=== PATIENT | male | born 1960 | race Caucasian/White ===

== ENCOUNTER 2022-09-25 03:07 | Inpatient (IN) | payer MEDICARE, SELFPAY ==
--- NOTE | ~2022-09-25 | XR_ITS ---
EXAMINATION: XR chest 1V portable DATE: 09/25/2022 13:55 INDICATION: Cough. Chronic obstructive pulmonary disease. TECHNIQUE: A single frontal view of the chest was obtained on 2 radiographs. COMPARISON: Chest 2 views 10/06/2017 FINDINGS: The chest demonstrates clear lungs without pneumonia, pleural effusion, or pneumothorax. Th e heart size is normal. There are fixation wires at left clavicle. IMPRESSION: 1. No acute cardiopulmonary disease. Reviewed, dictated and finalized at location A.
--- NOTE | ~2022-09-25 | XR_ITS ---
Left foot Technique: AP, oblique, and lateral views were obtained. Clinical History: Diabetic wound, pain Findings: No acute fracture or dislocation is seen. Osseous alignment is anatomic. Joint spaces are p reserved without erosive or degenerative change. There is a 5 mm linear foreign body projecting at th e second interspace region, between the second and third proximal phalanges. There is an additional 7 mm linear foreign body in the plantar aspect of the foot at the level of the proximal second metatar aman shaft region. Impression: No radiographic evidence for osteomyelitis. 2 small linear foreign bodies in the foot, as detailed above. Reviewed, dictated and finalized at location M. Impression: No radiographic evidence for osteomyelitis. 2 small linear foreign bodies in the foot, as detailed above.
[2022-09-25 03:16] VITALS: BP 168/93; PULSE 102; RESP 20; TEMP 37.2; O2SAT 100
[2022-09-25 04:41] LABS: Basophils Absolute Auto 0.1 K/mm3 (0.0-0.1); Basophils Percent Auto 0.5 % (0.2-1.2); Eosinophils Absolute Auto 0.2 K/mm3 (0-0.3); Eosinophils Percent Auto 1.6 % (0-4.4); Hematocrit 47.7 % (42.0-52.0); Immature Granulocyte Absolute 0.03 K/mm3 (0.00-0.031); Immature Granulocyte Percent A 0.3 % (0-0.5); Lymphocytes Absolute Auto 2.52 K/mm3 (0.9-3.2); Lymphocytes Percent Auto 27.2 % (18.3-44.2); Mean Corpuscular HGB Conc 33.5 g/dl (32-36); Mean Corpuscular Hemoglobin 29.6 pg (26-34); Mean Corpuscular Volume 88.2 fl (80-100); Mean Platelet Volume 10.8 fl (7.4-10.4); Monocytes Absolute Auto 0.8 K/mm3 (0.1-0.6); Monocytes Percent Auto 8.5 % (2.6-8.5); Neutrophils Absolute Auto 5.7 K/mm3 (1.3-6.7); Neutrophils Percent Auto 61.9 % (45.5-73.1); Platelet Count Result 166 k/mm3 (150-375); Red Blood Count 5.41 M/mm3 (4.6-6.20); White Blood Count 9.3 K/mm3 (4.5-10.0)
[2022-09-25 04:59] LABS: Alanine Aminotransferase 16 U/L (6-50); Albumin Level 3.7 g/dL (3.5-5.1); Alkaline Phosphatase 106 U/L (38-126); Anion Gap 6 mmol/L (8-16); Aspartate Amino Transferase 17 U/L (17-59); Bilirubin,Total 0.6 mg/dL (0.2-1.3); Blood Urea Nitrogen 16 mg/dL (9-20); Calcium 8.4 mg/dL (8.4-10.2); Carbon Dioxide 29 mmol/L (22-30); Chloride 96 mmol/L (98-107); Estimated CRCL calculation 145 ml/min; Estimated Glomerular Filt Rate > 60; Glucose 506 mg/dL (65-110); Sodium 131 mmol/L (137-145)
[2022-09-25 05:14] LABS: CRP 5.4 mg/dL (<1.0)
[2022-09-25 05:19] LABS: NT Pro B Type Natriuretic Pept 119 pg/mL (19.9-100)
[2022-09-25 05:21] LABS: Procalcitonin 0.1 ng/mL
--- NOTE | 2022-09-25 05:49 | ED.GENADULT ---
HPI - General Adult General Chief complaint: Extremity Problem,Nontraumatic Stated complaint: FEET SWELLING/CHF Time Seen by Provider: 09/25/22 04:31 History of Present Illness HPI narrative: Patient 62-year-old gentleman who presents the emergency department with chief complaint of cellulitis to left foot patient reports that he stubbed his toe and has history of diabetes. The patient reports that he had redness and swelling and a blister that is formed in between his first and second toe on his left foot. Patient reports has had prior history of sepsis in the past and is concerned that he may develop sepsis with this. Related Data Allergies Allergy/AdvReac Type Severity Reaction Status Date / Time clindamycin Allergy Unknown anaphylaxis Verified 09/25/22 06:09 gabapentin Allergy Unknown fluid Verified 09/25/22 06:09 retention morphine Allergy Unknown Agitated Verified 09/25/22 06:09 tapentadol Allergy Unknown Anaphylaxis Verified 09/25/22 06:09 Review of Systems Review of Systems: A 10 system review of systems was completed on the patient and is negative except for what is stated in the HPI. Nursing and ancillary documentation was reviewed. [facility] Past Medical History Medical History (Updated 09/25/22 @ 07:06 by Sherman Baum MD) Anxiety Arthritis Asthma Bronchitis CAD (coronary artery disease) CHF (congestive heart failure) Chronic back pain COPD (chronic obstructive pulmonary disease) Depression Diabetes type 2, uncontrolled DM II (diabetes mellitus, type II), controlled Fracture of left clavicle GERD (gastroesophageal reflux disease) GI bleed Hidradenitis Suspected HLD (hyperlipidemia) HTN (hypertension) Leg fracture, left Migraines Myocardial infarction Obstructive sleep apnea on CPAP Peripheral neuropathy PUD (peptic ulcer disease) Right wrist fracture TIA (transient ischemic attack) Umbilical hernia Possible recurrent Surgical History Surgical History H/O cardiac catheterization approximately 60% blockage without any intervention. H/O umbilical hernia repair Patient stated that he had a reoccurrence after surgery History of open reduction and internal fixation (ORIF) procedure left clavicle History of surgery on right wrist History of total bilateral knee replacement Performed twice on each knee Family History Family History Father Suicide Depression Mother Murder Sibling Suicide Sibling Family history of glaucoma Hypertension Family history of cardiovascular disease Mother Family history of cardiovascular disease Social History Social History Social History: the patient recently lost his fiancee about a month ago due to drugs. He served in the . He is disabled. He has 2 children a son and a daughter. He does not have a durable power erisa attorney. Smoking packs per day: 1 Smoking cigarettes per day: 20.0 Years smoked: 40 Smoking pack-years: 40.00 Smoking status: Current every day smoker Tobacco type: cigarettes Alcohol intake: current Alcohol use details: One drink of whiskey per month. Substance use: never Living arrangements: alone Additional living arrangements comments: The patient currently lives in the basement of his mother's house. Occupation/Education: unemployed Additional occupation/education comments: Pt states that he is disabled. Gender identity (if verbalized by the patient): Male Spiritual care concerns: No Agree to blood products: No Exam Narrative: GENERAL: Well-appearing, well-nourished, and in no acute distress. HEAD: Normocephalic, atraumatic. EYES: PERRLA and EOMI. ENT: Nares clear, no rhinorrhea or epistaxis. Mucous membranes moist. NECK: Supple. CHEST: Clear to auscultation. No respiratory distress. HEA
[2022-09-25 05:52] LABS: Lactic Acid Reflex 1.3 mmol/L (0.7-2.0)
[2022-09-25] MEDS: CEFEPIME 2 GM/NS 50 ML 2 GM/50 ML BAG IVPB ×2 (06:04→17:11)
[2022-09-25] MEDS: INSULIN HUMAN REGULAR (*BKC) 100 UNITS/ML 10 UNITS IV PUSH (06:09)
[2022-09-25 06:21] VITALS: BP 156/95; PULSE 95; RESP 17; O2SAT 93
[2022-09-25 06:36] LABS: Partial Thromboplastin Time 30.8 SECONDS (22.3-36.8); Prothrombin Time 12.9 Seconds (11.1-14.7)
[2022-09-25] MEDS: metroNIDAZOLE 500 MG/ISO 100ML 500 MG/100 ML BAG 100 MG IVPB ×3 (06:57→21:17)
[2022-09-25 07:19] VITALS: BP 145/97; PULSE 92; RESP 16; O2SAT 100
--- NOTE | 2022-09-25 07:20 | PC.NURSE ---
Assumed care of pt, pt is resting on stretcher, pt on tele monitor. Per Yanira LEW at bedside report, pt is will be and ADMIT and awaiting bed assignment.
--- NOTE | 2022-09-25 07:24 | PC.NURSE ---
BS 266
[2022-09-25 07:30] LABS: Glucose Point of Care 266 mg/dl (65-105)
--- NOTE | 2022-09-25 07:36 | PC.NURSE ---
Dietary tray ordered for pt.
--- NOTE | 2022-09-25 08:05 | ADMGEN ---
This patient, Kvng Hoover Jr., was admitted to Medical Room 345-01. Patient/family oriented to hospital policies and general routines including ID bracelet, bed and alarms, visiting hours, pain management, procedures, bathroom and other care routines, personal items, smoking policy, room service/diet, and visiting hours. Information on how to activate the Rapid Response Team has been discussed. Patient/Family are encouraged to report perceived risks to care and to ask questions if they do not understand what they are told or what they should do.
[2022-09-25 08:22] VITALS: BMI 37.0
[2022-09-25 09:17] LABS: Glucose Point of Care 300 mg/dl (65-105)
[2022-09-25] MEDS: INSULIN GLARGINE (*BKC) 100 UNITS/ML 15 UNITS SUB-Q (09:17)
[2022-09-25] MEDS: INSULIN ASPART (*BKC) 100 UNITS/ML SUB-Q ×3 (09:18→17:19)
--- NOTE | 2022-09-25 10:00 | PM.IMHP ---
H&P: HPI History of Present Illness Date/Time: 09/25/22 1000 Chief Complaint: Wound of the left toe Narrative: Patient is 60-year-old male with past medical history CHF, COPD, diabetes, hyperlipidemia, hypertension who presented to the ED with worsening swelling, redness, drainage on the left great toe. Patient stated that it all started about 2 days ago. He is unaware of any trauma or injury and stated that he does not have any feeling in his feet, so he is not aware of trauma what happens. He did state that he has been having night sweats pretty bad over the last couple days. He also stated that he has been having some chest pain and shortness of breath however has been from a cough. He denies any current nausea, vomiting, diarrhea, constipation, lightheadedness, dizziness, urinary dysfunction. He did state that he does have some groin pain on the right when he goes sometimes however it is very intermittent. He also stated that he stop taking all of his medications about 7 years ago. He does continue to smoke at this time. Patient is being admitted to the hospitalist service under observation Review of Systems Review of Systems: All systems reviewed & are unremarkable except as noted in HPI and below PMFSH Past Medical History Medical History (Updated 09/25/22 @ 12:41 by Jerome Barfield DO) Anxiety Arthritis Asthma Bronchitis CAD (coronary artery disease) CHF (congestive heart failure) Chronic back pain COPD (chronic obstructive pulmonary disease) Depression Diabetes type 2, uncontrolled DM II (diabetes mellitus, type II), controlled Fracture of left clavicle GERD (gastroesophageal reflux disease) GI bleed Hidradenitis Suspected HLD (hyperlipidemia) HTN (hypertension) Leg fracture, left Migraines Myocardial infarction Obstructive sleep apnea on CPAP Peripheral neuropathy PUD (peptic ulcer disease) Right wrist fracture TIA (transient ischemic attack) Umbilical hernia Possible recurrent Surgical History Surgical History H/O cardiac catheterization approximately 60% blockage without any intervention. H/O umbilical hernia repair Patient stated that he had a reoccurrence after surgery History of open reduction and internal fixation (ORIF) procedure left clavicle History of surgery on right wrist History of total bilateral knee replacement Performed twice on each knee Family History Family History Father Suicide Depression Mother Murder Sibling Suicide Sibling Family history of glaucoma Hypertension Family history of cardiovascular disease Mother Family history of cardiovascular disease Social History Social History Social History: the patient recently lost his fiancee about a month ago due to drugs. He served in the . He is disabled. He has 2 children a son and a daughter. He wishes to be a full code and would like his roommate Lux to be his surrogate. Smoking packs per day: 1 Smoking cigarettes per day: 20.0 Years smoked: 49 Smoking pack-years: 49.00 Smoking status: Current every day smoker Tobacco type: cigarettes Alcohol intake: never Alcohol use details: One drink of whiskey per month. Substance use: former Lack of Transportation: YES Lack of Food: Often True Current Housing: I Have Housing Concerned About Future Housing: No Difficulty Paying Gas/Electric Bills: No Difficulty Paying for Meds: YES Currently Unemployed: No Education: High School Diploma/GED Difficulty w/ Childcare or Family Care: No Living arrangements: with friend(s) Additional living arrangements comments: Just recently moved in with a friend Occupation/Education: unemployed Additional occupation/education comments: Pt states that he is disabled. Gender identity (if verbalized by the p
[2022-09-25 12:23] LABS: Glucose Point of Care 325 mg/dl (65-105)
--- NOTE | 2022-09-25 12:29 | PM.CNGS ---
Assessment and Plan Assessment and plan (1) Cellulitis of great toe of left foot: Code(s): L03.032 - Cellulitis of left toe Status: Acute Assessment and Plan: I have reviewed the imaging and assessed the patient. There does not appear to be any signs of deep necrotic infection. Would recommend applying mupirocin ointment to open blister daily and continue IV antibiotics as per hospitalist. Will continue to monitor for any worsening signs of infection. (2) Tobacco use: Code(s): Z72.0 - Tobacco use Status: Acute Assessment and Plan: Recommended quitting smoking (3) Diabetic neuropathy: Code(s): E11.40 - Type 2 diabetes mellitus with diabetic neuropathy, unspecified Status: Acute (4) Diabetes mellitus with hyperglycemia: Code(s): E11.65 - Type 2 diabetes mellitus with hyperglycemia Status: Acute Assessment and Plan: Patient has uncontrolled and is not on any regular scheduled meds at home. To be addressed by hospitalist. (5) Foreign body in left foot: Code(s): S90.852A - Superficial foreign body, left foot, initial encounter Status: Acute Assessment and Plan: Foreign bodies appear to be thin threads of metal, likely related to using a hand grinder. These do not appear to be in the area of current cellulitis and infection. Would not recommend attempting removal unless they are showing signs of infection locally. History of Present Illness Consult details Consult date: 09/25/22 Reason for consult: other (Left great toe wound) Requesting physician: Sherman Buam MD Narrative: This is a 62-year-old man who I am asked to see for a left great toe wound. The patient presented to the emergency department earlier this morning with a toe wound that has worsened over the last 3 days. He started noticing some redness on his left great toe that then started extending on to his foot and ankle. He has had worsening swelling over the last couple days. He denies any fevers. He states that he has no sensation in his feet due to diabetic neuropathy, therefore he is not experiencing any pain in the region. He has a history of diabetes but has not been on any medications for nearly 10 years he also has a 40+ pack-year history of smoking. He does note that he had a piece of metal in his right foot that was related to some metal shards from using a hand grinder in his work room. He was not aware that he had any foreign objects in his left foot until the x-ray was taken this morning. The left foot x-ray in the emergency department showed no evidence of osteomyelitis. There were 2 small thin metal objects seen on the x-ray in the foot but these are distant from where his main concern is. He was found have evidence of cellulitis and was admitted for further treatment. He is currently on cefepime, metronidazole, and vancomycin. He states that the redness has already started improving. Review of Systems Review of Systems: All systems reviewed & are unremarkable except as noted in HPI and below Constitutional: Constitutional: Denies chills and Denies fever(s) Eyes: Eyes: Denies change in vision ENT: Denies hearing loss, Denies neck pain and Denies sore throat Cardiovascular: Cardiovascular: Denies chest pain and Denies dyspnea Respiratory: Respiratory: Denies cough, Denies dyspnea and Denies wheezing Gastrointestinal: Gastrointestinal: Denies abdominal pain, Denies change in bowel habits, Denies constipation and Denies vomiting Genitourinary: Genitourinary: Denies hematuria and Denies dysuria Musculoskeletal: Musculoskeletal: Reports as per HPI, Denies arthralgias, Denies joint swelling and Denies neck pain Neurologic: Reports as per HPI Allergic/Immunologic: Allergic/Immunologic: Denies wheezing [facility] Past Medical History Medical History (Updated 09/25/22 @ 12:41 by Jerome Barfield DO) Anxiety Arthritis Asthma Bronchitis CAD (coronary art
[2022-09-25 14:00] VITALS: BP 142/93; PULSE 92; RESP 16; TEMP 36.8; O2SAT 99
[2022-09-25 17:16] LABS: Glucose Point of Care 257 mg/dl (65-105)
--- NOTE | 2022-09-25 19:34 | PC.NURSE ---
PER PATIENT HE TAKES NO HOME MEDICATIONS.
[2022-09-25 20:46] VITALS: BP 138/83; PULSE 93; RESP 20; TEMP 36.6; O2SAT 97
[2022-09-25 21:13] LABS: Glucose Point of Care 229 mg/dl (65-105)
[2022-09-26] MEDS: ACETAMINOPHEN 325 MG TABLET 650 MG PO (01:05)
[2022-09-26 05:45] LABS: Basophils Absolute Auto 0.1 K/mm3 (0.0-0.1); Basophils Percent Auto 0.8 % (0.2-1.2); Eosinophils Absolute Auto 0.2 K/mm3 (0-0.3); Eosinophils Percent Auto 2.3 % (0-4.4); Hematocrit 47.5 % (42.0-52.0); Hemoglobin 16.4 g/dL (14.0-18.0); Immature Granulocyte Absolute 0.04 K/mm3 (0.00-0.031); Immature Granulocyte Percent A 0.4 % (0-0.5); Lymphocytes Absolute Auto 2.78 K/mm3 (0.9-3.2); Lymphocytes Percent Auto 29.3 % (18.3-44.2); Mean Corpuscular HGB Conc 34.5 g/dl (32-36); Mean Corpuscular Hemoglobin 29.6 pg (26-34); Mean Corpuscular Volume 85.7 fl (80-100); Monocytes Absolute Auto 0.7 K/mm3 (0.1-0.6); Monocytes Percent Auto 6.8 % (2.6-8.5); Neutrophils Absolute Auto 5.7 K/mm3 (1.3-6.7); Neutrophils Percent Auto 60.4 % (45.5-73.1); Platelet Count Result 165 k/mm3 (150-375); Red Blood Count 5.54 M/mm3 (4.6-6.20); Red Cell Distribution Width 12.7 % (11.5-14.5); White Blood Count 9.5 K/mm3 (4.5-10.0)
[2022-09-26 05:47] VITALS: BP 131/87; PULSE 89; RESP 20; TEMP 36.4; O2SAT 95
[2022-09-26 06:01] LABS: Alanine Aminotransferase 16 U/L (6-50); Albumin Level 3.3 g/dL (3.5-5.1); Alkaline Phosphatase 94 U/L (38-126); Anion Gap 2 mmol/L (8-16); Aspartate Amino Transferase 19 U/L (17-59); Bilirubin,Total 0.6 mg/dL (0.2-1.3); Blood Urea Nitrogen 11 mg/dL (9-20); Carbon Dioxide 31 mmol/L (22-30); Chloride 99 mmol/L (98-107); Cholesterol 217 mg/dL (0-200); Estimated CRCL calculation 147 ml/min; Estimated Glomerular Filt Rate > 60; Glucose 217 mg/dL (65-110); HDL Direct 49 mg/dL; Magnesium 2.1 mg/dL (1.6-2.3); Potassium 3.5 mmol/L (3.4-5.0); Sodium 132 mmol/L (137-145); Triglycerides 174 mg/dL (<150)
[2022-09-26 06:14] LABS: LDL Cholesterol Direct 132 mg/dL
[2022-09-26] MEDS: CEFEPIME 2 GM/NS 50 ML 2 GM/50 ML BAG IVPB ×2 (06:48→17:22)
[2022-09-26] MEDS: metroNIDAZOLE 500 MG/ISO 100ML 500 MG/100 ML BAG 100 MG IVPB ×3 (06:48→21:40)
[2022-09-26 08:00] VITALS: PULSE 89; RESP 20; O2SAT 95
[2022-09-26 08:13] LABS: Glucose Point of Care 254 mg/dl (65-105)
[2022-09-26] MEDS: INSULIN ASPART (*BKC) 100 UNITS/ML SUB-Q ×3 (08:25→17:19)
[2022-09-26] MEDS: ASPIRIN 81 MG CHEWABLE TABLET PO (08:29)
[2022-09-26] MEDS: MUPIROCIN 2% OINT 22 GM TUBE 1 APPLIC TOPICAL (08:43)
--- NOTE | 2022-09-26 09:00 | PM.IMPN ---
Progress Note: A&P Assessment and Plan (1) Cellulitis of great toe of left foot: Code(s): L03.032 - Cellulitis of left toe Status: Acute Assessment and Plan: reported increased redness, swelling to the left great toe foot x-ray found 2 small linear foreign bodies in the foot most likely related to uncontrolled diabetes continue cefepime, vancomycin, Flagyl day 2 CRP has 5.4, procal is 0.1 wound care consult, added mupirocin General surgery consult thank you for your help Wound culture pending blood culture NGTD no evidence of osteomyelitis Trend symptoms including redness swelling infection (2) Diabetes type 2, uncontrolled: Qualifiers: Glycemic state: with hyperglycemia Qualified Code(s): E11.65 - Type 2 diabetes mellitus with hyperglycemia Code(s): E11.65 - Type 2 diabetes mellitus with hyperglycemia Status: Acute Assessment and Plan: glucose is 506 upon admission, currently 217 patient reports no home meds A1c 5.8 Accu-Cheks AC and HS insulin sliding scale with a increased protocol hypoglycemia protocol trend glucose adjust therapy as indicated (3) HTN (hypertension): Qualifiers: Hypertension type: essential hypertension Qualified Code(s): I10 - Essential (primary) hypertension Code(s): I10 - Essential (primary) hypertension Status: Chronic Assessment and Plan: BP is 131/87 No home medications Trend BP Adjust medications as indicated (4) COPD (chronic obstructive pulmonary disease): Qualifiers: COPD type: unspecified COPD Qualified Code(s): J44.9 - Chronic obstructive pulmonary disease, unspecified Code(s): J44.9 - Chronic obstructive pulmonary disease, unspecified Status: Chronic Assessment and Plan: patient reports increased shortness of breath, cough, wheezes patient currently does smoke no reported home meds chest x-ray ordered consider neb treatments stable at this time not convinced of exacerbation (5) Foreign body in left foot: Code(s): S90.852A - Superficial foreign body, left foot, initial encounter Status: Acute Assessment and Plan: Seen on Xray General surgery consulted Intervention not indicated (6) Diabetic neuropathy: Code(s): E11.40 - Type 2 diabetes mellitus with diabetic neuropathy, unspecified Status: Acute Assessment and Plan: Related to uncontrolled glucose Stated he was on gabapentin at one time, however did note to have an allergy to gabapentin Hold off on restarting as he seems to not want anything for this Time Spent With Patient Time: 52 minutes Time with patient: Greater than 35 minutes Subjective Date/time seen: 09/26/22899 Interval history: 09/26/22899 Patient was lying in bed. Patient stated is having a lot of pain in his leg and stated that his legs are throbbing. He denies any chest pain, shortness a breath, nausea vomiting. He does have a pretty decent cough with sweats. He is walking around states that he is okay walking. We also talked about some maintenance medications as he is okay with restarting a statin for his cholesterol, aspirin, something for neuropathy. He does have history of fun drug use so will start with duloxetine as he is allergic to gabapentin. 09/25/22? 1000 Patient is 60-year-old male with past medical history CHF, COPD, diabetes, hyperlipidemia, hypertension who presented to the ED with worsening swelling, redness, drainage on the left great toe.? Patient stated that it all started about 2 days ago.? He is unaware of any trauma or injury and stated that he does not have any feeling in his feet, so he is not aware of trauma what happens.? He did state that he has been having night sweats pretty bad over the last couple days.? He also stat
--- NOTE | 2022-09-26 09:00 | P.PNIM_ITS ---
Progress Note: A&P Assessment and Plan (1) Cellulitis of great toe of left foot: Code(s): L03.032 - Cellulitis of left toe Status: Acute Assessment and Plan: * reported increased redness, swelling to the left great toe * foot x-ray found 2 small linear foreign bodies in the foot * most likely related to uncontrolled diabetes * continue cefepime, vancomycin, Flagyl day 2 * CRP has 5.4, procal is 0.1 * wound care consult, added mupirocin * General surgery consult thank you for your help * Wound culture pending * blood culture NGTD * no evidence of osteomyelitis * Trend symptoms including redness swelling infection (2) Diabetes type 2, uncontrolled: Qualifiers: Glycemic state: with hyperglycemia Qualified Code(s): E11.65 - Type 2 diabetes mellitus with hyperglycemia Code(s): E11.65 - Type 2 diabetes mellitus with hyperglycemia Status: Acute Assessment and Plan: * glucose is 506 upon admission, currently 217 * patient reports no home meds * A1c 5.8 * Accu-Cheks AC and HS * insulin sliding scale with a increased protocol * hypoglycemia protocol * trend glucose * adjust therapy as indicated (3) HTN (hypertension): Qualifiers: Hypertension type: essential hypertension Qualified Code(s): I10 - Essential (primary) hypertension Code(s): I10 - Essential (primary) hypertension Status: Chronic Assessment and Plan: * BP is 131/87 * No home medications * Trend BP * Adjust medications as indicated (4) COPD (chronic obstructive pulmonary disease): Qualifiers: COPD type: unspecified COPD Qualified Code(s): J44.9 - Chronic o bstructive pulmonary disease, unspecified Code(s): J44.9 - Chronic obstructive pulmonary disease, unspecified Status: Chronic Assessment and Plan: * patient reports increased shortness of breath, cough, wheezes * patient currently does smoke * no reported home meds * chest x-ray ordered * consider neb treatments * stable at this time not convinced of exacerbation (5) Foreign body in left foot: Code(s): S90.852A - Superficial foreign body, left foot, initial encounter Status: Acute Assessment and Plan: * Seen on Xray * General surgery consulted * Intervention not indicated (6) Diabetic neuropathy: Code(s): E11.40 - Type 2 diabetes mellitus with diabetic neuropathy, unspecified Status: Acute Assessment and Plan: * Related to uncontrolled glucose * Stated he was on gabapentin at one time, however did note to have an allergy to gabapentin * Hold off on restarting as he seems to not want anything for this Time Spent With Patient Time: 52 minutes Time with patient: Greater than 35 minutes Subjective Date/time seen: 09/26/22899 Interval history: 09/26/22899 Patient was lying in bed. Patient stated is having a lot of pain in his leg and stated that his legs are throbbing. He denies any chest pain, shortness a breath, nausea vomiting. He does have a pretty decent cough with sweats. He is walking around states that he is okay walking. We also talked about some maintenance medications as he is okay with restarting a statin for his cholesterol, aspirin, something for neuropathy. He does have hist
--- NOTE | 2022-09-26 10:29 | PM.PNGS ---
Progress Note: A&P Assessment and Plan (1) Cellulitis of great toe of left foot: Code(s): L03.032 - Cellulitis of left toe Status: Acute Assessment and Plan: Continue local wound care. No surgical debridement necessary at this time. OK to discharge once medically stable. Will sign off. (2) Foreign body in left foot: Code(s): S90.852A - Superficial foreign body, left foot, initial encounter Status: Acute (3) Diabetes mellitus with hyperglycemia: Code(s): E11.65 - Type 2 diabetes mellitus with hyperglycemia Status: Acute (4) Diabetic neuropathy: Code(s): E11.40 - Type 2 diabetes mellitus with diabetic neuropathy, unspecified Status: Acute (5) Tobacco use: Code(s): Z72.0 - Tobacco use Status: Acute Subjective Subjective Date/Time Seen: 09/26/22 10:29 Interval history: Doing well. No pain. Exam Extrem: Other: Left great toe wound with redness but no ischemic changes or gangrene. Objective Data Vital Signs Vital Signs: Vital Signs - 24 hr 09/25/22 14:00 09/25/22 20:46 09/26/22 05:47 Temperature 36.8 C 36.6 C 36.4 C L Pulse Rate 92 93 89 Respiratory Rate 16 20 20 Blood Pressure 142/93 H 138/83 131/87 Pulse Oximetry 99 97 95 Intake/Output Intake/Output: Intake & Output 09/23/22 09/24/22 09/25/22 09/26/22 23:59 23:59 23:59 23:59 Intake Total 2240 1570 Balance 2240 1570 Meds/Results Medications: Active Medications Generic Name Dose Route Start Last Admin Trade Name Freq PRN Reason Stop Dose Admin Acetaminophen 650 mg 09/25/22 07:01 09/26/22 01:05 Acetaminophen 325 Mg Tablet PO 650 mg Q4H PRN Administration Mild Pain (1-3) or Fever Aspirin 81 mg 09/26/22 08:00 09/26/22 08:29 Aspirin 81 Mg Chewable Tablet PO 81 mg DAILY@0800 CONNER Administration Dextrose 12.5 gm 09/25/22 07:01 Dextrose 50% 25 Gm/50 Ml Syringe IV PUSH PRN PRN Hypoglycemia Protocol Glucagon 1 mg 09/25/22 07:01 Glucagon For Inj 1 Mg Vial IM PRN PRN Hypoglycemia Protocol Glucose 15 gm 09/25/22 07:01 Glucose Oral Gel 15 Gm Of Glucse In 37.5 Gm Tube PO PRN PRN Hypoglycemia Protocol Cefepime HCl 2 gm in 50 mls @ 100 mls/hr 09/25/22 18:00 09/26/22 06:48 Maxipime 2 Gm/Ns 50 Ml IVPB 100 mls/hr Q12H CONNER Administration Metronidazole 500 mg in 100 mls @ 100 mls/hr 09/25/22 14:00 09/26/22 06:48 Flagyl 500 Mg/Iso Soln 100 Ml IVPB 100 mls/hr Q8H CONNER Administration Dextrose 1,000 mls @ 100 mls/hr 09/25/22 07:01 Dextrose 5% 1,000 Ml IVPB PRN PRN Hypoglycemia Protocol Vancomycin HCl 1,500 mg in 500 mls @ 250 mls/hr 09/25/22 21:00 09/26/22 08:29 Vancomycin 1,500 Mg/D5w 500 Ml IVPB 250 mls/hr Q12H CONNER Administration Insulin Aspart 4 - 12 units 09/25/22 12:00 09/26/22 08:25 Insulin Aspart (*Bkc) 100 Units/Ml SUB-Q 8 units TIDWM CONNER Administration Protocol Mupirocin 1 applic 09/26/22 09:00 09/26/22 08:43 Mupirocin 2% Oint 22 Gm Tube TOPICAL 1 applic DAILY CONNER Administration Radiology Results: ITS Impressions Foot X-Ray 09/25/22 06:22 Impression: No radiographic evidence for osteomyelitis. 2 small linear foreign bodies in the foot, as detailed above. Chest X-Ray 09/25/22 13:57 IMPRESSION: 1. No acute cardiopulmonary disease. Labs Labs: Laboratory Results - last 24 hr 09/25/22 09/25/22 09/25/22 12:17 17:15 21:09 WBC RBC Hgb Hct MCV MCH MCHC RDW Plt Count MPV Immature Gran % (Auto) Neut % (Auto) Lymph % (Auto) Burke % (Auto) Eos % (Auto) Baso % (Auto) Lymph # (Auto) Burke # (Auto) Eos # (Auto) Baso # (Auto) Abs Immat Gran (auto) Absolute Neuts (auto) Absolute Nucleated RBC Nucleated RBC % Sodium Potassium Chloride Carbon Dioxide Anion Gap BUN Creat
[2022-09-26 12:24] LABS: Glucose Point of Care 325 mg/dl (65-105)
[2022-09-26] MEDS: HYDROcodone/acetaminophen (*CRX) 5-325 MG TABLET 1 TAB PO (13:20)
[2022-09-26] MEDS: DULoxetine HCL 60 MG CAPSULE.DR PO (13:20)
[2022-09-26] MEDS: metFORMIN HCL 500 MG TABLET PO (13:29)
[2022-09-26 14:00] VITALS: BP 128/80; PULSE 94; RESP 18; TEMP 36.4; O2SAT 97
[2022-09-26 17:18] LABS: Glucose Point of Care 290 mg/dl (65-105)
[2022-09-26 20:11] VITALS: BP 156/92; PULSE 102; RESP 16; TEMP 37.3; O2SAT 97
[2022-09-26 20:31] LABS: Vancomycin Trough 8.4 ug/mL (10.0-20.0)
[2022-09-26 21:01] LABS: Glucose Point of Care 260 mg/dl (65-105)
[2022-09-27 04:44] VITALS: BP 124/74; PULSE 94; RESP 18; TEMP 36.3; O2SAT 98
[2022-09-27 05:42] LABS: Basophils Absolute Auto 0.1 K/mm3 (0.0-0.1); Basophils Percent Auto 0.9 % (0.2-1.2); Eosinophils Absolute Auto 0.2 K/mm3 (0-0.3); Eosinophils Percent Auto 1.8 % (0-4.4); Hematocrit 47.5 % (42.0-52.0); Hemoglobin 16.4 g/dL (14.0-18.0); Immature Granulocyte Absolute 0.04 K/mm3 (0.00-0.031); Immature Granulocyte Percent A 0.4 % (0-0.5); Lymphocytes Percent Auto 27.7 % (18.3-44.2); Mean Corpuscular HGB Conc 34.5 g/dl (32-36); Mean Corpuscular Hemoglobin 29.5 pg (26-34); Mean Corpuscular Volume 85.4 fl (80-100); Mean Platelet Volume 9.7 fl (7.4-10.4); Monocytes Absolute Auto 0.6 K/mm3 (0.1-0.6); Monocytes Percent Auto 7.1 % (2.6-8.5); Neutrophils Absolute Auto 5.6 K/mm3 (1.3-6.7); Neutrophils Percent Auto 62.1 % (45.5-73.1); Platelet Count Result 168 k/mm3 (150-375); Red Blood Count 5.56 M/mm3 (4.6-6.20); Red Cell Distribution Width 12.6 % (11.5-14.5)
[2022-09-27] MEDS: CEFEPIME 2 GM/NS 50 ML 2 GM/50 ML BAG IVPB (05:45)
[2022-09-27] MEDS: metroNIDAZOLE 500 MG/ISO 100ML 500 MG/100 ML BAG 100 MG IVPB (05:55)
[2022-09-27 05:57] LABS: Alanine Aminotransferase 17 U/L (6-50); Albumin Level 3.4 g/dL (3.5-5.1); Alkaline Phosphatase 89 U/L (38-126); Anion Gap 5 mmol/L (8-16); Aspartate Amino Transferase 21 U/L (17-59); Bilirubin,Total 0.7 mg/dL (0.2-1.3); Blood Urea Nitrogen 13 mg/dL (9-20); CRP 1.5 mg/dL (<1.0); Carbon Dioxide 29 mmol/L (22-30); Chloride 99 mmol/L (98-107); Estimated CRCL calculation 174 ml/min; Estimated Glomerular Filt Rate > 60; Glucose 243 mg/dL (65-110); Potassium 3.6 mmol/L (3.4-5.0); Sodium 133 mmol/L (137-145)
--- NOTE | 2022-09-27 08:19 | P.DS_ITS ---
DS: Admitting Diagnosis Discharge Date 09/27/22814 Admitting Diagnosis Cellulitis of the left great toe DS: Discharge Diagnosis Discharge Diagnosis (1) Cellulitis of great toe of left foot: Code(s): L03.032 - Cellulitis of left toe Status: Acute Assessment and Plan: * reported increased redness, swelling to the left great toe * foot x-ray found 2 small linear foreign bodies in the foot * most likely related to uncontrolled diabetes * Stop cefepime, vancomycin, Flagyl, start Amoxicillin for a total of a 14 day course * CRP has 5.4, procal is 0.1 * Current CRP is 1.5 * wound care consult, added mupirocin * General surgery consult thank you for your help * Wound culture grew group B streptococcus * blood culture NGTD * no evidence of osteomyelitis * Trend symptoms including redness swelling infection (2) Diabetes type 2, uncontrolled: Qualifiers: Glycemic state: with hyperglycemia Qualified Code(s): E11.65 - Type 2 diabetes mellitus with hyperglycemia Code(s): E11.65 - Type 2 diabetes mellitus with hyperglycemia Status: Acute Assessment and Plan: * glucose is 506 upon admission, currently 243 * patient reports no home meds * A1c 13.4 * Accu-Cheks AC and HS * insulin sliding scale with a increased protocol * hypoglycemia protocol * trend glucose * adjust therapy as indicated * Started metformin, increase to twice a day * Added Jardiance for further control (3) HTN (hypertension): Qualifiers: Hypertension type: essential hypertension Qualified Code(s): I10 - Essential (primary) hypertension Code(s): I10 - Essential (primary) hypertension Status: Chronic Assessment and Plan: * BP is 124/74 * No home medications * Trend BP * Adjust medications as indicated * Jardiance added for further glucose control (4) COPD (chronic obstructive pulmonary disease): Qualifiers: COPD type: unspecified COPD Qualified Code(s): J44.9 - Chronic obstructive pulmonary disease, unspecified Code(s): J44.9 - Chronic obstructive pulmonary disease, unspecified Status: Chronic Assessment and Plan: * patient reports increased shortness of breath, cough, wheezes * patient currently does smoke * no reported home meds * chest x-ray no acute cardiopulmonary disease * consider neb treatments * stable at this time not convinced of exacerbation (5) Foreign body in left foot: Code(s): S90.852A - Superficial foreign body, left foot, initial encounter Status: Acute Assessment and Plan: * Seen on Xray * General surgery consulted * Intervention not indicated (6) Diabetic neuropathy: Code(s): E11.40 - Type 2 diabetes mellitus with diabetic neuropathy, unspecified Status: Acute Assessment and Plan: * Related to uncontrolled glucose * Stated he was on gabapentin at one time, however did note to have an allergy to gabapentin * Started Cymbalta for control to avoid Lyrica and narcotics DS: Summary Hospital Course Hospital Course: patient 6-year-old male with past medical history of CHF, COPD, diabetes, hyperlipidemia, hypertension who presented the ED with worsening swelling, redness, drainage of left great toe. Patient stated that it all
--- NOTE | 2022-09-27 08:19 | PM.DS ---
DS: Admitting Diagnosis Discharge Date 09/27/2215 Admitting Diagnosis Cellulitis of the left great toe DS: Discharge Diagnosis Discharge Diagnosis (1) Cellulitis of great toe of left foot: Code(s): L03.032 - Cellulitis of left toe Status: Acute Assessment and Plan: reported increased redness, swelling to the left great toe foot x-ray found 2 small linear foreign bodies in the foot most likely related to uncontrolled diabetes Stop cefepime, vancomycin, Flagyl, start Amoxicillin for a total of a 14 day course CRP has 5.4, procal is 0.1 Current CRP is 1.5 wound care consult, added mupirocin General surgery consult thank you for your help Wound culture grew group B streptococcus blood culture NGTD no evidence of osteomyelitis Trend symptoms including redness swelling infection (2) Diabetes type 2, uncontrolled: Qualifiers: Glycemic state: with hyperglycemia Qualified Code(s): E11.65 - Type 2 diabetes mellitus with hyperglycemia Code(s): E11.65 - Type 2 diabetes mellitus with hyperglycemia Status: Acute Assessment and Plan: glucose is 506 upon admission, currently 243 patient reports no home meds A1c 13.4 Accu-Cheks AC and HS insulin sliding scale with a increased protocol hypoglycemia protocol trend glucose adjust therapy as indicated Started metformin, increase to twice a day Added Jardiance for further control (3) HTN (hypertension): Qualifiers: Hypertension type: essential hypertension Qualified Code(s): I10 - Essential (primary) hypertension Code(s): I10 - Essential (primary) hypertension Status: Chronic Assessment and Plan: BP is 124/74 No home medications Trend BP Adjust medications as indicated Jardiance added for further glucose control (4) COPD (chronic obstructive pulmonary disease): Qualifiers: COPD type: unspecified COPD Qualified Code(s): J44.9 - Chronic obstructive pulmonary disease, unspecified Code(s): J44.9 - Chronic obstructive pulmonary disease, unspecified Status: Chronic Assessment and Plan: patient reports increased shortness of breath, cough, wheezes patient currently does smoke no reported home meds chest x-ray no acute cardiopulmonary disease consider neb treatments stable at this time not convinced of exacerbation (5) Foreign body in left foot: Code(s): S90.852A - Superficial foreign body, left foot, initial encounter Status: Acute Assessment and Plan: Seen on Xray General surgery consulted Intervention not indicated (6) Diabetic neuropathy: Code(s): E11.40 - Type 2 diabetes mellitus with diabetic neuropathy, unspecified Status: Acute Assessment and Plan: Related to uncontrolled glucose Stated he was on gabapentin at one time, however did note to have an allergy to gabapentin Started Cymbalta for control to avoid Lyrica and narcotics DS: Summary Hospital Course Hospital Course: patient 6-year-old male with past medical history of CHF, COPD, diabetes, hyperlipidemia, hypertension who presented the ED with worsening swelling, redness, drainage of left great toe. Patient stated that it all started about 2 days prior to admission and was getting worse. X-ray of the foot did not show any evidence for osteomyelitis but did show some foreign bodies in the foot most likely metal shavings from a loader magazine grinder use. General surgery was consulted and no debridement was indicated. Wound Care did evaluate the patient and wound has been cleaned up. Mupirocin appointment has been prescribed and has been applied to the wound. Redness, swelling, pain has is decreased and appears better. Wound culture did grow group B Streptococcus. Patient initially was started on IV cefepime, vancomycin, Flagy
[2022-09-27 08:39] LABS: Glucose Point of Care 248 mg/dl (65-105)
[2022-09-27 08:40] VITALS: PULSE 94; RESP 18; O2SAT 98
[2022-09-27] MEDS: MUPIROCIN 2% OINT 22 GM TUBE 1 APPLIC TOPICAL (08:40)
[2022-09-27] MEDS: DULoxetine HCL 60 MG CAPSULE.DR PO (08:40)
[2022-09-27] MEDS: ASPIRIN 81 MG CHEWABLE TABLET PO (08:40)
[2022-09-27] MEDS: ATORVASTATIN 20 MG TABLET PO (08:40)
[2022-09-27] MEDS: metFORMIN HCL 500 MG TABLET PO (08:40)
[2022-09-27] MEDS: EMPAGLIFLOZIN 25 MG TABLET PO (08:48)
[2022-09-27] MEDS: AMOXICILLIN/CLAVULANATE K 875-125 MG TAB 1 TABLET PO (08:48)
[2022-09-27 09:38] LABS: Hemoglobin A1C 13.4 % (<5.7)
[2022-09-27 10:53] LABS: Glucose Point of Care 337 mg/dl (65-105)
[2022-09-27 12:03] LABS: Glucose Point of Care 264 mg/dl (65-105)
[2022-09-27] MEDS: INSULIN ASPART (*BKC) 100 UNITS/ML SUB-Q (12:30)
== END 2022-09-27 13:43 | disposition home or self-care (01) | DRG 639 ==
LOC: ANHED 07:06 → ANH3MED 07:41
PROVIDERS: Admitting Provider Internal Medicine; Emergency Provider Emergency Medicine; Visit Provider Nurse Practitioner
DX: E11.628 Type 2 diabetes mellitus with other skin complications (principal); L03.032 Cellulitis of left toe; E11.65 Type 2 diabetes mellitus with hyperglycemia; J44.9 Chronic obstructive pulmonary disease, unspecified; S90.852A Superficial foreign body, left foot, initial encounter; E11.40 Type 2 diabetes mellitus with diabetic neuropathy, unspecified; E78.5 Hyperlipidemia, unspecified; I11.0 Hypertensive heart disease with heart failure; I50.9 Heart failure, unspecified; F41.9 Anxiety disorder, unspecified; F32.A Depression, unspecified; G47.33 Obstructive sleep apnea (adult) (pediatric); F17.210 Nicotine dependence, cigarettes, uncomplicated; Z96.653 Presence of artificial knee joint, bilateral; Z88.1 Allergy status to other antibiotic agents; Z88.5 Allergy status to narcotic agent
CPT/HCPCS: 36415; 71045; 73630; 80053; 80061; 80202; 82948; 83036; 83605; 83735; 83880; 84145; 85025; 85610; 85730; 86140; 87040; 87070; 87147; 87205; 96365; 96366; 96367; 99285; A9270; G0378; J0692; J1815; J3370

== ENCOUNTER 2023-01-09 16:58 | Emergency (ER) | payer MEDICARE, SELFPAY ==
--- NOTE | ~2023-01-09 | XR_ITS ---
EXAMINATION: XR chest 2V Exam Date/Time: 01/09/2023 17:20 CDT HISTORY: sob, COUGH (PRODUCTIVE) Comparison: 09/25/2022. RESULT: Lines, tubes, and devices: Left clavicular cerclage wires. Lungs and pleura: Streaky left basilar opacities. Minimal left costophrenic angle blunting. Cardiomediastinal silhouette: Stable. Other: No acute osseous or upper abdominal finding. IMPRESSION: Left basilar atelectasis/scar. Small left pleural effusion versus pleural parenchymal scarring. Reviewed, dictated and finalized at location K. IMPRESSION: Left basilar atelectasis/scar. Small left pleural effusion versus pleural paren chymal scarring.
--- NOTE | ~2023-01-09 | XR_ITS ---
EXAM: XR foot RT min 3V DATE: 01/09/2023 17:38 HISTORY: STEPPED ON SEWING NEEDLE 3 DAYS AGO . COMPARISON: None available. FINDINGS: Decreased mineralization. No fracture or dislocation. No lytic or blastic lesion. Moderate tibiotalar and mild midfoot degenerative changes. No erosion or periosteal change. Radiopaque foreig n body #1: vertically oriented sewing needle in the plantar soft tissues at the level of and probably abutting the undersurface of the proximal third and fourth metatarsals. There are multiple additiona l linear, radiopaque foreign bodies likely representing needle fragments: #2 lateral to the fifth pro ximal phalange, #3 plantar soft tissues at the level of the cuneiforms, #4 plantar soft tissues at th e level of the anterior calcaneus. Mid and forefoot soft tissue swelling. IMPRESSION: Multiple soft tissue foreign bodies, described above. Reviewed, dictated and finalized at location K.
[2023-01-09 17:08] VITALS: BP 149/90; PULSE 107; RESP 22; TEMP 37.4; O2SAT 97
--- NOTE | 2023-01-09 17:16 | ECG_ITS ---
Measurements Intervals [place] Rate: 103 P: 15 VA: 185 QRS: -30 QRSD: 82 T: 61 QT: 334 QTc: 439 Interpretive Statements SINUS TACHYCARDIA VENTRICULAR PREMATURE COMPLEX CONSIDER ANTERIOR INFARCT, AGE INDETERMINATE INFERIOR INFARCT, AGE INDETERMINATE BORDERLINE T WAVE ABNORMALITY- HIGH LATERAL LEADS BASELINE ARTIFACT- I, II, III, AVR, AVL, AVF ABNORMAL ECG NO PREVIOUS ECG AVAILABLE FOR COMPARISON Electronically Signed On 01-09-2023 17:37:56 CDT by Kiran Johnson D.O.
[2023-01-09 18:14] LABS: Basophils Absolute Auto 0.1 K/mm3 (0.0-0.1); Basophils Percent Auto 0.6 % (0.2-1.2); Eosinophils Absolute Auto 0.1 K/mm3 (0-0.3); Eosinophils Percent Auto 1.1 % (0-4.4); Hematocrit 48.2 % (42.0-52.0); Hemoglobin 16.2 g/dL (14.0-18.0); Immature Granulocyte Absolute 0.05 K/mm3 (0.00-0.031); Immature Granulocyte Percent A 0.4 % (0-0.5); Lymphocytes Absolute Auto 1.71 K/mm3 (0.9-3.2); Lymphocytes Percent Auto 13.3 % (18.3-44.2); Mean Corpuscular HGB Conc 33.6 g/dl (32-36); Mean Corpuscular Hemoglobin 29.4 pg (26-34); Mean Corpuscular Volume 87.5 fl (80-100); Mean Platelet Volume 9.9 fl (7.4-10.4); Monocytes Percent Auto 7.9 % (2.6-8.5); Neutrophils Absolute Auto 9.8 K/mm3 (1.3-6.7); Neutrophils Percent Auto 76.7 % (45.5-73.1); Platelet Count Result 190 k/mm3 (150-375); Red Blood Count 5.51 M/mm3 (4.6-6.20); White Blood Count 12.8 K/mm3 (4.5-10.0)
[2023-01-09 18:24] LABS: Alanine Aminotransferase 17 U/L (6-50); Albumin Level 3.8 g/dL (3.5-5.1); Alkaline Phosphatase 98 U/L (38-126); Anion Gap 5 mmol/L (8-16); Aspartate Amino Transferase 18 U/L (17-59); Bilirubin,Total 0.7 mg/dL (0.2-1.3); Blood Urea Nitrogen 16 mg/dL (9-20); Calcium 9.1 mg/dL (8.4-10.2); Carbon Dioxide 28 mmol/L (22-30); Chloride 96 mmol/L (98-107); Estimated CRCL calculation 123 ml/min; Estimated Glomerular Filt Rate > 60; Glucose 444 mg/dL (65-110); Sodium 129 mmol/L (137-145)
[2023-01-09 20:11] LABS: Troponin I 0.014 ng/mL (0.000-0.034)
--- NOTE | 2023-01-09 21:37 | PC.NURSE ---
called pt to take back to room. no answer.
== END 2023-01-09 21:37 | disposition left against medical advice (07) ==
PROVIDERS: Emergency Provider Emergency Medicine
DX: R06.02 Shortness of breath (principal); M79.671 Pain in right foot
CPT/HCPCS: 36415; 71046; 73630; 80053; 84484; 85025; 93005; 99199

== ENCOUNTER 2023-09-24 00:46 | Inpatient (IN) | payer MEDICARE, SELFPAY ==
[2023-09-24] VITALS (17 sets, daily range): BP systolic 118–142; BP diastolic 84–99; PULSE 86–103; RESP 18–28; TEMP 35.6–36.8; O2SAT 88–99; BMI 41.6
--- NOTE | 2023-09-24 | ECHO_ITS ---
Patient Info Name: Kvng Hoover Age: 63 years : 1960 Gender: Male Ht: 72 in Wt: 307 lbs BSA: 2.72 m2 HR: 59 bpm BP: 130 / 96 mmHg Technical Quality: Fair Exam Date: 09/24/2023 10:14 AM Exam Location: Echo Lab Exam Room: [facility] Patient Status: Inpatient Admit Date: 09/24/2023 Staff Ordering Physician: Reina Raya APRN Angle Shear Operator: Sarita Wilson RDCS Attending Provider: Stella Westfall MD Referring Physician: Elver AMAYA; Exam Type: CA echo doppler color flow Study Info Indications - chf Complete two-dimensional, color flow and Doppler transthoracic echocardiogram is performed. Summary 1. Complete two-dimensional, color flow and Doppler transthoracic echocardiogram is performed. 2. Left ventricular chamber dimension is moderately enlarged. 3. Left ventricular systolic function is moderately globally reduced, estimated at 35-40%. 4. There is mild concentric increased left ventricular wall thickness. 5. The left ventricular diastolic function is abnormal. 6. E/e' 17 is elevated. 7. Left atrial chamber dimension is moderately enlarged. 8. Right atrial chamber dimension is moderately enlarged. 9. There is moderate aortic valve sclerosis. 10. There is mild mitral valve regurgitation. 11. There is mild tricuspid valve regurgitation. 12. No pulmonary hypertension, estimated pulmonary arterial systolic pressure is 30 mmHg. 13. There is trace pulmonic regurgitation. 14. There is small circumferential pericardial effusion. Left Ventricle E/e' 17 is elevated. Left ventricular systolic function is moderately globally reduced, estimated at 35-40%. Left ventricular chamber dimension is moderately enlarged. There is mild concentric increased left ventricular wall thickness. The left ventricular diastolic function is abnormal. Right Ventricle Right ventricular chamber dimension is normal. Right ventricular systolic function is normal. Left Atria Left atrial chamber dimension is moderately enlarged. Right Atria Right atrial chamber dimension is moderately enlarged. Aortic Valve The aortic valve is trileaflet. There is moderate aortic valve sclerosis. There is no aortic valve stenosis. There is no aortic valve regurgitation. Pulmonic Valve There is trace pulmonic regurgitation. Mitral Valve There is no mitral valve stenosis. There is mild mitral valve regurgitation. Tricuspid Valve There is mild tricuspid valve regurgitation. No pulmonary hypertension, estimated pulmonary arterial systolic pressure is 30 mmHg. Pericardium/Pleural No cardiac tamponade. There is small circumferential pericardial effusion. Inferior Vena Cava Normal inferior vena cava with >50% collapse upon inspiration consistent with normal right atrial pressure, 5 mmHg. Aorta The aortic root size at the sinus of Valsalva is normal. Left Ventricular Outflow Tract Name Value Normal LVOT 2D LVOT Diameter 2.1 cm LVOT Doppler LVOT Peak Gradient 4 mmHg LVOT Mean Gradient 3 mmHg LVOT VTI 18 cm LVOT VTI/AV VTI Ratio 0.8 LVOT Stroke Volume 59 ml
--- NOTE | ~2023-09-24 | NM_ITS ---
EXAMINATION: NM gabby stress w perfusion DATE: 09/27/2023 10:38 INDICATION: Shortness of breath and elevated troponin TECHNIQUE: Rest images were obtained following intravenous administration of 10.9 mCi Tc99m tetrofosm in (Myoview). The patient was infused intravenously with Lexiscan (Regadenoson). Then, 33.2 mCi Tc99m tetrofosmin (Myoview) was administered intravenously, and stress images were obtained. Data was humberto nstructed into short axis and horizontal and vertical long axis SPECT images. Gated SPECT images were also obtained. COMPARISON: None. FINDINGS: There is no definite reversible or fixed perfusion abnormality to suggest ischemia or infar ction. There is normal left ventricular chamber size, wall motion and ejection fraction. Left ventr icular ejection fraction measures 44%. IMPRESSION: 1. Normal myocardial perfusion at rest and during stress. 2. Left ventricular ejection fraction measuring 44%. Reviewed, dictated and finalized at location A.
--- NOTE | ~2023-09-24 | CT_ITS ---
EXAMINATION: CT chest abdomen pelvis w con DATE: 09/24/2023 14:34 INDICATION: Abdominal pain. Shortness of breath. TECHNIQUE: Computed tomography (CT) of the chest, abdomen, and pelvis was performed with 100 mL Omnip aque 350 intravenous contrast. Automated exposure control and iterative reconstruction technique were employed. The dose-length product was 1915.77 mGy-cm. COMPARISON: None FINDINGS: CHEST CT: The lungs demonstrate mild dependent atelectasis. A calcified left lung nodule and calcified left hil ar lymph nodes are consistent with old granulomatous disease. There is a small left pleural effusion. The heart size is normal. There are coronary artery calcifications. There is a small pericardial eff usion. There is mild mediastinal lymphadenopathy, likely reactive. There is mild bilateral gynecomast ia. There is poor fixation of left clavicle. There are bridging endplate osteophytes at multiple leve ls in the spine, consistent with diffuse idiopathic skeletal hyperostosis (DISH). There is mild thora cic spondylosis. ABDOMEN/PELVIS CT: The liver is normal. Calcifications in the spleen are consistent with old granulomatous disease. The gallbladder is normal in size. Gallbladder wall thickening is likely secondary to interstitial edema. Calcifications in the pancreas are consistent with chronic pancreatitis. The adrenal glands and kidn eys are normal. There is calcified atherosclerosis of the aorta and many of the other arteries. There is a 4.6 cm fusiform aneurysm of infrarenal aorta. There are bilateral inguinal hernias containing f at. There are no dilated loops of bowel. The appendix is normal. There are no pathologically enlarged lymph nodes. There is a small volume of ascites. Body wall edema is noted. There is an umbilical her jasvir containing fat. There are changes of supraumbilical ventral hernia repair. There is mild lumbar s pondylosis. IMPRESSION: 1. Anasarca including small left pleural effusion, small pericardial effusion, and small volume of as cites. 2. Mild mediastinal lymphadenopathy, likely reactive. 3. 4.6 cm fusiform aneurysm of infrarenal aorta. 4. Umbilical hernia containing fat. Bilateral inguinal hernias containing fat. Reviewed, dictated and finalized at location A. IMPRESSION: 1. Anasarca including small left pleural effusion, small pericardial effusion, and small volume of ascites. 2. Mild mediastinal lymphadenopathy, likely reactive. 3. 4.6 cm fusiform aneurysm of infrarenal aorta. 4. Umbilical hernia containing fat. Bilateral inguinal hernias containing fat.
--- NOTE | ~2023-09-24 | US_ITS ---
EXAMINATION: US venous doppler [facility] DATE: 09/24/2023 14:44 INDICATION: Lower limb swelling TECHNIQUE: Grayscale ultrasound images without and with compression and Doppler ultrasound images of the bilateral lower extremity veins were obtained. COMPARISON: None. FINDINGS: The visualized portions of right common femoral vein, profunda (deep) femoral vein, femoral vein, pop liteal vein, posterior tibial veins, peroneal veins, gastrocnemius vein and greater saphenous vein ou tflow are patent. The visualized portions of left common femoral vein, profunda femoral vein, femoral vein, popliteal v ein, posterior tibial veins, peroneal veins, gastrocnemius vein and greater saphenous vein outflow ar e patent. IMPRESSION: 1. No deep venous thrombosis in either lower limb. Reviewed, dictated and finalized at location B.
--- NOTE | ~2023-09-24 | XR_ITS ---
EXAMINATION: XR chest 1V portable DATE: 09/24/2023 01:33 INDICATION: Shortness of breath. TECHNIQUE: A single frontal view of the chest was obtained on 2 radiographs. COMPARISON: None. FINDINGS: There are airspace opacities at left lung base. There is a small left pleural effusion. No pneumothorax. Cardiomegaly is noted. There are fixation wires at left clavicle. IMPRESSION: 1. Airspace opacities at left lung base, consistent with atelectasis versus pneumonia. 2. Small left pleural effusion. 3. Cardiomegaly. Reviewed, dictated and finalized at location A. IMPRESSION: 1. Airspace opacities at left lung base, consistent with atelectasis versus pne umonia. 2. Small left pleural effusion. 3. Cardiomegaly.
--- NOTE | 2023-09-24 00:48 | ECG_ITS ---
SEE SCANNED COPY FOR CONFIRMED REPORT MTDD
[2023-09-24 01:11] LABS: Basophils Absolute Auto 0.1 K/mm3 (0.0-0.1); Basophils Percent Auto 0.7 % (0.2-1.2); Eosinophils Absolute Auto 0.2 K/mm3 (0-0.3); Eosinophils Percent Auto 1.5 % (0-4.4); Hematocrit 49.6 % (42.0-52.0); Hemoglobin 15.6 g/dL (14.0-18.0); Immature Granulocyte Absolute 0.04 K/mm3 (0.00-0.031); Immature Granulocyte Percent A 0.3 % (0-0.5); Immature Platelet Fraction Pct 8.1 % (0.9-11.2); Lymphocytes Absolute Auto 2.74 K/mm3 (0.9-3.2); Lymphocytes Percent Auto 23.4 % (18.3-44.2); Mean Corpuscular HGB Conc 31.5 g/dl (32-36); Mean Platelet Volume 11.6 fl (7.4-10.4); Monocytes Percent Auto 8.8 % (2.6-8.5); Neutrophils Absolute Auto 7.7 K/mm3 (1.3-6.7); Neutrophils Percent Auto 65.3 % (45.5-73.1); Platelet Count Result 130 k/mm3 (150-375); Red Blood Count 5.57 M/mm3 (4.6-6.20); Red Cell Distribution Width 14.3 % (11.5-14.5); White Blood Count 11.7 K/mm3 (4.5-10.0)
[2023-09-24 01:18] LABS: Alanine Aminotransferase 23 U/L (6-50); Albumin Level 3.8 g/dL (3.5-5.1); Alkaline Phosphatase 162 U/L (38-126); Anion Gap 4 mmol/L (4-12); Aspartate Amino Transferase 35 U/L (17-59); Bilirubin,Total 0.8 mg/dL (0.2-1.3); Blood Urea Nitrogen 19 mg/dL (9-20); Calcium 9.2 mg/dL (8.4-10.2); Carbon Dioxide 31 mmol/L (22-30); Chloride 101 mmol/L (98-107); Estimated CRCL calculation 105 ml/min; Estimated Glomerular Filt Rate > 60; Glucose 263 mg/dL (65-110); Potassium 3.8 mmol/L (3.4-5.0); Sodium 136 mmol/L (137-145)
--- NOTE | 2023-09-24 01:25 | ED.GENADULT ---
HPI - General Adult General Chief complaint: Shortness of Breath/Dyspnea Stated complaint: short of breath, edema from legs to abd Time Seen by Provider: 09/24/23 01:07 History of Present Illness HPI narrative: This is a 63-year-old male history of CHF COPD presenting with shortness of breath. Patient says he has been getting progressively worse shortness of breath over the last week. He has also noticed swelling of his legs and abdominal fullness. patient has fevers chills chest pain. He is unable to lay flat due to cough. Patient is still smoking tobacco. Related Data Allergies Allergy/AdvReac Type Severity Reaction Status Date / Time clindamycin Allergy Unknown anaphylaxis Verified 09/25/22 08:28 gabapentin Allergy Unknown fluid Verified 09/25/22 08:28 retention morphine Allergy Unknown Agitated Verified 09/25/22 08:28 tapentadol Allergy Unknown Anaphylaxis Verified 09/25/22 08:28 [facility] Past Medical History Medical History (Updated 09/24/23 @ 03:03 by Joel Philip MD) Anxiety Arthritis Asthma Bronchitis CAD (coronary artery disease) CHF (congestive heart failure) Chronic back pain COPD (chronic obstructive pulmonary disease) Depression Diabetes type 2, uncontrolled DM II (diabetes mellitus, type II), controlled Fracture of left clavicle GERD (gastroesophageal reflux disease) GI bleed Hidradenitis Suspected HLD (hyperlipidemia) HTN (hypertension) Leg fracture, left Migraines Myocardial infarction Obstructive sleep apnea on CPAP Peripheral neuropathy PUD (peptic ulcer disease) Right wrist fracture TIA (transient ischemic attack) Umbilical hernia Possible recurrent Surgical History Surgical History H/O cardiac catheterization approximately 60% blockage without any intervention. H/O umbilical hernia repair Patient stated that he had a reoccurrence after surgery History of open reduction and internal fixation (ORIF) procedure left clavicle History of surgery on right wrist History of total bilateral knee replacement Performed twice on each knee Family History Family History Father Suicide Depression Mother Murder Sibling Suicide Sibling Family history of glaucoma Hypertension Family history of cardiovascular disease Mother Family history of cardiovascular disease Social History Social History Social History: the patient recently lost his fiancee about a month ago due to drugs. He served in the . He is disabled. He has 2 children a son and a daughter. He wishes to be a full code and would like his roommate Lux to be his surrogate. Smoking packs per day: 1 Smoking cigarettes per day: 20.0 Years smoked: 49 Smoking pack-years: 49.00 Smoking status: Current every day smoker Tobacco type: cigarettes Alcohol intake: never Alcohol use details: One drink of whiskey per month. Substance use: former Lack of Transportation: YES Lack of Food: Often True Current Housing: I Have Housing Concerned About Future Housing: No Difficulty Paying Gas/Electric Bills: No Difficulty Paying for Meds: YES Currently Unemployed: No Education: High School Diploma/GED Difficulty w/ Childcare or Family Care: No Living arrangements: with friend(s) Additional living arrangements comments: Just recently moved in with a friend Occupation/Education: unemployed Additional occupation/education comments: Pt states that he is disabled. Gender identity (if verbalized by the patient): Male Sexual Orientation (if Verbalized by the Patient): Straight or Heterosexual Spiritual care concerns: No Agree to blood products: No Exam Narrative: general: patient appears chronically unwell, strong smell of tobacco Head: atraumatic. EYES: EOMI, NOSE: Atraumatic NECK: Trachea midline RE
[2023-09-24] MEDS: dexAMETHasone SOD PHOS INJ 10 MG/ML 1 ML VIAL IV PUSH (01:31)
[2023-09-24] MEDS: FUROSEMIDE INJ 40 MG/4 ML VIAL IV PUSH ×3 (01:31→17:29)
[2023-09-24 01:34] LABS: Ethanol < 10 mg/dL (<10)
[2023-09-24] MEDS: IPRATROPIUM 0.5 MG/ALBUTEROL SULFATE 2.5 MG AMPUL.NEB 3 ML 12 ML INHALATION ×3 (01:38→03:18)
[2023-09-24 01:51] LABS: NT Pro B Type Natriuretic Pept 3370 pg/mL (19.9-100); Troponin I 0.035 ng/mL (0.000-0.034)
[2023-09-24 01:57] LABS: Partial Thromboplastin Time 30.8 Seconds (22.3-36.8)
[2023-09-24 02:32] LABS: Barbiturate Screen Urine Negative (Negative); Benzodiazepines Screen Urine Negative (Negative)
[2023-09-24 02:33] LABS: Cannabinoid Screen Urine Negative (Negative); Cocaine Screen Urine Negative (Negative); Methadone Screen Urine Negative (Negative); Opiate Screen Urine Negative (Negative); Phencyclidine Screen Urine Negative (Negative)
[2023-09-24 02:51] LABS: Amphetamine Screen Urine Positive (Negative)
[2023-09-24 03:15] LABS: Influenza A QL RT-PCR Negative (Negative); Influenza B QL RT-PCR Negative (Negative); RSV RNA, RT-PCR Negative (Negative); SARS-CoV-2 RNA PCR Negative (Negative)
--- NOTE | 2023-09-24 05:30 | ADMGEN ---
This patient, Kvng Hoover Jr., was admitted to [facility] Surg Room 325-01. Patient/family oriented to hospital policies and general routines including ID bracelet, bed and alarms, visiting hours, pain management, procedures, bathroom and other care routines, personal items, smoking policy, room service/diet, and visiting hours. Information on how to activate the Rapid Response Team has been discussed. Patient/Family are encouraged to report perceived risks to care and to ask questions if they do not understand what they are told or what they should do.
[2023-09-24 06:49] LABS: Troponin I 0.031 ng/mL (0.000-0.034)
--- NOTE | 2023-09-24 07:01 | PM.IMHP ---
H&P: HPI History of Present Illness Date/Time: 09/24/23 07:01 Chief Complaint: Shortness of breath/dyspnea BLE edema Narrative: This is a 63 year old male with a significant past medical history of anxiety, asthma, coronary artery disease, CHF, COPD, depression, uncontrolled type 2 diabetes, GERD, hyperlipidemia, hypertension, [place], sleep apnea, peripheral neuropathy, TIA, tobacco abuse, amphetamine abuse who presented to the hospital with shortness of breath and edema to BLE and abdomen. Patient states that his shortness of breath started about 1 week ago with associated coughing with minimal sputum production. He was taking just [id number] cold medicine to help with this cough which did not alleviate his symptoms. He reported 2-3 days ago bilateral lower extremity edema which is new for him and swelling to his abdomen. He states that he does not have a primary care physician and most of his care was provided at the [facility] however he does not wish to go back there for any more care. He states he has been out of his home medications for at least 6 months and the last time he seen a primary care physician was 1 year ago. He states he has a CPAP at home however is broken and he has not been able to use that. He also denies any access to a glucometer and has not checked his blood sugars in quite a while. He denies any fever, chills, nausea, vomiting, diarrhea, headache. He endorses shortness of breath, chest pain on admission however has subsided now, bilateral leg swelling, and abdominal pain with anasarca. He denies being around any sick contacts. He also denies compliance with yearly immunizations for flu, COVID, RSV, pneumonia. He is currently on 4 L nasal cannula and is short of breath at rest, bilateral lower extremities with 2+ edema and chronic wounds to lower extremities, his abdomen has notable redness in the left and right lower quadrant, he does have an umbilical hernia. Work up in the hospital included chest x-ray which shown airspace opacities at left lung base consistent with pneumonia versus atelectasis, small left pleural effusion. Labs today revealed a WBC of 11.7, Plt count 130, Na+ 136, BG 263, last hgb a1c on 09/27/22 was 13.4 repeat hemoglobin A1c was 13.4 today,alk phos 162, Troponin 0.014>0.035>0.031, pro BNP 3370. UDS positive for amphetamines. Respiratory panel negative for influenza A and B, RSV, and COVID. He was given a duoneb treatment, dexamethasone 10mg IV push and Lasix 40 mg IV push in the ER. Cardiology consulted for additional support. Review of Systems Review of Systems: All systems reviewed & are unremarkable except as noted in HPI and below Constitutional: Constitutional: Reports as per HPI and Reports no additional constitutional complaints Eyes: Eyes: Reports as per HPI and Reports no additional eye complaints ENT: Reports system reviewed and no additional complaints, except as documented and Reports as per HPI Cardiovascular: Cardiovascular: Reports as per HPI and Reports no additional cardiovascular complaints Respiratory: Respiratory: Reports as per HPI and Reports no additional respiratory complaints Gastrointestinal: Gastrointestinal: Reports as per HPI and Reports no additional gastrointestinal complaints Genitourinary: Genitourinary: Reports no additional male genitourinary complaints and Reports as per HPI Musculoskeletal: Musculoskeletal: Reports no additional musculoskeletal complaints and Reports as per HPI Integumentary/Breasts: Skin/Breast: Reports system reviewed and no additional complaints, except as docu and Reports as per HPI Neurologic: Reports system reviewed and no additional complaints, except as documented and Reports as per HPI Psychiatric: Psychiatric: Reports no additional psychiatric complaints and Reports as per HPI [facility] Past Medical History Medical History (Updated 09/24/23 @ 13:02 by Reina Raya APRN) Anxiety Arthritis Asthma Bronchitis CAD (coronary artery d
[2023-09-24 08:04] LABS: Cholesterol 163 mg/dL (0-200); HDL Direct 47 mg/dL; Magnesium 1.9 mg/dL (1.6-2.3); Triglycerides 68 mg/dL (<150)
[2023-09-24 08:14] LABS: Glucose Point of Care 283 mg/dl (65-105)
[2023-09-24 08:15] LABS: LDL Cholesterol Direct 97 mg/dL
[2023-09-24 08:16] LABS: Hemoglobin A1C 13.4 % (<5.7)
[2023-09-24] MEDS: INSULIN ASPART (*BKC) 100 UNITS/ML SUB-Q ×4 (08:59→21:42)
[2023-09-24] MEDS: ENOXAPARIN 40 MG/0.4 ML SYRINGE SUB-Q (09:00)
--- NOTE | 2023-09-24 10:34 | PM.CNCAR ---
Assessment and Plan Assessment and plan (1) SOB (shortness of breath) on exertion: Code(s): R06.02 - Shortness of breath Status: Acute Assessment and Plan: CHF, unknown type. Obtaining echo now. Agree with Lasix 40 mg IV BID. (2) Tobacco use: Code(s): Z72.0 - Tobacco use Status: Acute Assessment and Plan: Counseled regarding smoking cessation. (3) Elevated troponin: Code(s): R79.89 - Other specified abnormal findings of blood chemistry Status: Acute Assessment and Plan: Peaked at .035. Unlikely ACS, and probably CHF related. (4) HTN (hypertension): Qualifiers: Hypertension type: essential hypertension Qualified Code(s): I10 - Essential (primary) hypertension Code(s): I10 - Essential (primary) hypertension Status: Chronic Assessment and Plan: Stable. (5) CAD (coronary artery disease): Qualifiers: Coronary Disease-Associated Artery/Lesion type: unspecified vessel or lesion type [place] vs. transplanted heart: cahto heart Associated angina: angina presence unspecified Qualified Code(s): I25.10 - Atherosclerotic heart disease of cahto coronary artery without angina pectoris Code(s): I25.10 - Atherosclerotic heart disease of cahto coronary artery without angina pectoris Status: Chronic Assessment and Plan: Unclear workup in past. History of Present Illness History of Present Illness Consult date/time: 09/24/23 10:34 Reason For Visit: CHF Narrative: 63 year old male with a significant past medical history of anxiety, asthma, coronary artery disease, CHF, COPD, depression, uncontrolled type 2 diabetes, GERD, hyperlipidemia, hypertension, AR, sleep apnea, peripheral neuropathy, TIA, tobacco abuse, amphetamine abuse who presented to the hospital with shortness of breath and edema to BLE and abdomen. He is a poor historian as he is very somnolent and only giving a few words answers. Info obtained from chart. States he has progressive sob and edema of legs and intermittent chest pains. He smokes 1 ppd. Review of Systems Review of Systems: ROS unobtainable: Yes unobtainable due to mental status [facility] Past Medical History Medical History (Updated 09/24/23 @ 10:37 by Kiran Johnson DO) Anxiety Arthritis Asthma Bronchitis CAD (coronary artery disease) CHF (congestive heart failure) Chronic back pain COPD (chronic obstructive pulmonary disease) Depression Diabetes type 2, uncontrolled DM II (diabetes mellitus, type II), controlled Fracture of left clavicle GERD (gastroesophageal reflux disease) GI bleed Hidradenitis Suspected HLD (hyperlipidemia) HTN (hypertension) Leg fracture, left Migraines Myocardial infarction Obstructive sleep apnea on CPAP Peripheral neuropathy PUD (peptic ulcer disease) Right wrist fracture TIA (transient ischemic attack) Umbilical hernia Possible recurrent Surgical History Surgical History H/O cardiac catheterization approximately 60% blockage without any intervention. H/O umbilical hernia repair Patient stated that he had a reoccurrence after surgery History of open reduction and internal fixation (ORIF) procedure left clavicle History of surgery on right wrist History of total bilateral knee replacement Performed twice on each knee Family History Family History Father Suicide Depression Mother Murder Sibling Suicide Sibling Family history of glaucoma Hypertension Family history of cardiovascular disease Mother Family history of cardiovascular disease Social History Social History Social History: the patient recently lost his fiancee about a month ago due to drugs. He served in the . He is disabled. He has 2 children a son and a daughter. He wishes to be a full
[2023-09-24 11:14] LABS: Glucose Point of Care 353 mg/dl (65-105)
[2023-09-24] MEDS: BENZONATATE 100 MG CAPSULE 200 MG PO ×2 (15:10→17:29)
[2023-09-24 15:58] LABS: CRP 2.4 mg/dL (<1.0)
[2023-09-24 16:40] LABS: Glucose Point of Care 249 mg/dl (65-105)
[2023-09-24] MEDS: BETAMETHASONE/CLOTRIMAZOLE CR 15 GM TUBE 1 APPLIC TOPICAL ×2 (17:29→21:44)
[2023-09-24 21:12] LABS: Glucose Point of Care 236 mg/dl (65-105)
[2023-09-24] MEDS: INSULIN GLARGINE (*BKC) 100 UNITS/ML 12 UNITS SUB-Q (21:43)
[2023-09-24] MEDS: guaiFENesin/DEXTROMETHORPHAN 10 ML UDC PO (22:02)
[2023-09-25] VITALS (10 sets, daily range): BP systolic 110–152; BP diastolic 68–97; PULSE 78–99; RESP 14–22; TEMP 36.4–36.6; O2SAT 95–99
[2023-09-25 06:42] LABS: Basophils Absolute Auto 0.1 K/mm3 (0.0-0.1); Basophils Percent Auto 0.4 % (0.2-1.2); Eosinophils Percent Auto 0.1 % (0-4.4); Hematocrit 49.2 % (42.0-52.0); Hemoglobin 15.2 g/dL (14.0-18.0); Immature Granulocyte Absolute 0.06 K/mm3 (0.00-0.031); Immature Granulocyte Percent A 0.5 % (0-0.5); Lymphocytes Absolute Auto 2.32 K/mm3 (0.9-3.2); Lymphocytes Percent Auto 20.7 % (18.3-44.2); Mean Corpuscular HGB Conc 30.9 g/dl (32-36); Mean Corpuscular Volume 90.6 fl (80-100); Mean Platelet Volume 12.2 fl (7.4-10.4); Monocytes Absolute Auto 0.9 K/mm3 (0.1-0.6); Monocytes Percent Auto 7.7 % (2.6-8.5); Neutrophils Absolute Auto 7.9 K/mm3 (1.3-6.7); Neutrophils Percent Auto 70.6 % (45.5-73.1); Platelet Count Result 147 k/mm3 (150-375); Red Blood Count 5.43 M/mm3 (4.6-6.20); Red Cell Distribution Width 14.3 % (11.5-14.5); White Blood Count 11.2 K/mm3 (4.5-10.0)
--- NOTE | 2023-09-25 06:52 | PM.PNCARD ---
Progress Note: A&P Assessment and Plan (1) SOB (shortness of breath) on exertion: Code(s): R06.02 - Shortness of breath Status: Acute Assessment and Plan: Due to both COPD and heart failure. (2) Tobacco use: Code(s): Z72.0 - Tobacco use Status: Acute Assessment and Plan: Counseled regarding smoking cessation. (3) Elevated troponin: Code(s): R79.89 - Other specified abnormal findings of blood chemistry Status: Acute Assessment and Plan: Peaked at .035. Unlikely ACS, and probably CHF related. (4) HTN (hypertension): Qualifiers: Hypertension type: essential hypertension Qualified Code(s): I10 - Essential (primary) hypertension Code(s): I10 - Essential (primary) hypertension Status: Chronic Assessment and Plan: Stable. (5) CAD (coronary artery disease): Qualifiers: Coronary Disease-Associated Artery/Lesion type: unspecified vessel or lesion type [place] vs. transplanted heart: [place] heart Associated angina: angina presence unspecified Qualified Code(s): I25.10 - Atherosclerotic heart disease of [place] coronary artery without angina pectoris Code(s): I25.10 - Atherosclerotic heart disease of [place] coronary artery without angina pectoris Status: Chronic Assessment and Plan: States he had cath at [place] several years ago which I can't find report, but had 80% small vessel stenosis that can't be stented per patient (6) Combined systolic and diastolic congestive heart failure: Code(s): I50.40 - Unspecified combined systolic (congestive) and diastolic (congestive) heart failure Status: Acute Assessment and Plan: 09/24/23 Echo: EF 35-40%, mod LVE, mild LVH, diastolic dysfunction (E/e' 17), mod biatrial enlargement, mild MR/TR, trace PI, small pericardial effusion. Continue with diuresis with Lasix 40 mg IV BID. Start Losartan 25 mg daily and Metoprolol Succinate 25 mg daily, start Spironolactone 25 mg daily. Subjective Date/time seen: 09/25/23 06:52 Interval history: Reports no chest pains. Has chronic sob and coughing. Exam Const: General: healthy appearing, comfortable and other (somnolent) Orientation/consciousness: oriented to person, oriented to place and oriented to time Resp: Auscultation: no crackles, no rales, no rhonchi, no wheezes and diminished lung sounds Cardio: Rate: regular rate Rhythm: regular rhythm Heart sounds: no murmurs Peripheral pulses: dorsalis pedis present Neuro: General: oriented to person, oriented to place and oriented to time Extrem: Right lower extremity: edema Left lower extremity: edema Other: Mild edema of both legs Objective Data Vital Signs Vital Signs: Vital Signs - 24 hr 09/24/23 08:00 09/24/23 09:43 09/24/23 10:31 Temperature 96.0 F L Pulse Rate 93 Respiratory Rate 20 Blood Pressure 142/99 H Pulse Oximetry 98 94 Oxygen Delivery Nasal Cannula CPAP Oxygen Flow Rate 2 09/24/23 08:00 09/24/23 12:00 09/24/23 14:53 Temperature Pulse Rate 94 92 Respiratory Rate 18 Blood Pressure 133/92 H Pulse Oximetry 95 Oxygen Delivery Nasal Cannula Oxygen Flow Rate 4 09/24/23 16:00 09/24/23 15:37 09/24/23 12:03 Temperature 96.0 F L Pulse Rate 86 91 Respiratory Rate 20 Blood Pressure 133/94 H Pulse Oximetry 99 Oxygen Delivery Nasal Cannula Oxygen Flow Rate 4 09/24/23 16:01 09/24/23 20:51 09/24/23 20:00 Temperature 98.2 F Pulse Rate 97 94 Respiratory Rate 22 H Blood Pressure 118/86 Pulse Oximetry 96 95 Oxygen Delivery Nasal Cannula Oxygen Flow Rate 4 09/24/23 20:00 09/24/23 20:00 09/25/23 00:00 Temperature 97.7 F Pulse Rate 98 94 Respiratory Rate 20 Blood Pressure 144/95 H Pulse Oximetry 97 Oxygen Delivery CPAP Oxygen Flow Rate 09/25/23 00:00 09/24/23 22:00 09/25/23 03:00 Temperature Pulse Rate 95 Respiratory Rate Blood Pres
[2023-09-25 06:54] LABS: Alanine Aminotransferase 19 U/L (6-50); Albumin Level 3.6 g/dL (3.5-5.1); Alkaline Phosphatase 139 U/L (38-126); Anion Gap 4 mmol/L (4-12); Aspartate Amino Transferase 32 U/L (17-59); Bilirubin,Total 0.7 mg/dL (0.2-1.3); Blood Urea Nitrogen 25 mg/dL (9-20); Calcium 8.7 mg/dL (8.4-10.2); Carbon Dioxide 29 mmol/L (22-30); Chloride 100 mmol/L (98-107); Estimated CRCL calculation 119 ml/min; Estimated Glomerular Filt Rate > 60; Glucose 213 mg/dL (65-110); Magnesium 2.1 mg/dL (1.6-2.3); Potassium 3.5 mmol/L (3.4-5.0); Sodium 133 mmol/L (137-145)
[2023-09-25 08:09] LABS: Glucose Point of Care 214 mg/dl (65-105)
[2023-09-25] MEDS: BENZONATATE 100 MG CAPSULE 200 MG PO ×2 (09:14→17:19)
[2023-09-25] MEDS: FUROSEMIDE INJ 40 MG/4 ML VIAL IV PUSH ×2 (09:14→17:19)
[2023-09-25] MEDS: INSULIN ASPART (*BKC) 100 UNITS/ML SUB-Q ×3 (09:14→20:18)
[2023-09-25] MEDS: METOPROLOL SUCCINATE EXT REL 25 MG TABCR PO (09:14)
[2023-09-25] MEDS: LOSARTAN POTASSIUM 25 MG TABLET PO (09:15)
[2023-09-25] MEDS: SPIRONOLACTONE 25 MG TABLET PO (09:15)
[2023-09-25] MEDS: BETAMETHASONE/CLOTRIMAZOLE CR 15 GM TUBE 1 APPLIC TOPICAL ×2 (09:15→20:19)
[2023-09-25] MEDS: ENOXAPARIN 40 MG/0.4 ML SYRINGE SUB-Q (09:28)
--- NOTE | 2023-09-25 11:54 | P.PNIM_ITS ---
Progress Note: A&P Assessment and Plan (1) Acute respiratory failure with hypoxia: Code(s): J96.01 - Acute respiratory failure with hypoxia Status: Acute Assessment and Plan: 09/24/2023: * On arrival patient oxygen sat was 88% on room air he was placed on oxygen at 4 L nasal cannula * He was given a DuoNeb, Lasix, Decadron 10 mg IV push while in the ED * Will continue with DuoNeb and IV Lasix continue diuresis * Chest x-ray showed airspace opacities at left lung base, consistent with atelectasis versus pneumonia, small left pleural effusion * We will get a CT of the chest abdomen pelvis today * ProBNP was 3370 * CPAP ordered for night use * Continue to wean O2 to keep sat greater than 92% * Echocardiogram ordered * Start guaifenesin and Tessalon Perles * Continue Lasix for diuresis * PT and OT ordered 09/25/23: * CT of the chest abdomen and pelvis showed anasarca including small left pleural effusion, small pericardial effusion small volume ascites, 4.6 cm fusiform aneurysm infrarenal aorta, umbilical hernia containing, bilateral inguinal hernia containing fat. * Echo showing moderately reduced LV systolic function with an ejection fraction 35-40%, left ventricular diastolic function is abnormal, moderate aortic valve sclerosis. * Venous Doppler negative for DVT * DuoNebs ordered q.6 p.r.n. for wheezing, shortness of breath (2) CHF (congestive heart failure): Qualifiers: Heart failure chronicity: chronic Heart failure type: diastolic Qualified Code(s): I50.32 - Chronic diastolic (congestive) heart failure Code(s): I50.9 - Heart failure, unspecified Status: Chronic Assessment and Plan: 09/24/2023: * BNP was 3370 * Reporting shortness of breath with rest and bilateral lower extremity edema * Patient has been noncompliant with his care and has not taking any medication in the last 6 months and has not seen a physician in the last year * Cardiology is consulted * Echo results are pending * Continuous cardiac monitoring * Will get venous Dopplers today 09/25/23: * Cardiology following * Cardiology put in for losartan 25 mg daily, metoprolol 25 mg daily, spironolactone 25 mg daily * We will continue diuresis with Lasix 40 mg IV b.i.d. (3) Elevated troponin: Code(s): R79.89 - Other specified abnormal findings of blood chemistry Status: Acute Assessment and Plan: 09/24/2023: * Troponin 0.014> 0.035> 0.031 * Likely demand ischemia due to acute respiratory failure with hypoxia * Cardiology will be following 09/25/23: * No change (4) COPD (chronic obstructive pulmonary disease): Qualifiers: COPD type: unspecified COPD Qualified Code(s): J44.9 - Chronic obstructive pulmonary disease, unspecified Code(s): J44.9 - Chronic obstructive pulmonary disease, unspecified Status: Chronic Assessment and Plan: 09/24/2023: * Patient denies wearing any oxygen are requiring any oxygen at home * He is supposed to wear CPAP at night however has been noncompliant because his machine is broken and he does not have a primary care physician 09/25/23: * Continue CPAP at night (5) Abdominal pain: Code(s): R10.9 - Unspecified abdominal pain Status: Acute Assessment and Plan: 09/24/2023: * Reporting lower abdominal pain * He does have umbilical hernia present, there is notable swelling and redness to his bilateral lower quadrants and pannus * We will go ahead and get a CT of the chest abdomen pelvis today with contrast 09/25/23: * CT of the chest abdomen and pelv
--- NOTE | 2023-09-25 11:54 | PM.IMPN ---
Progress Note: A&P Assessment and Plan (1) Acute respiratory failure with hypoxia: Code(s): J96.01 - Acute respiratory failure with hypoxia Status: Acute Assessment and Plan: 09/24/2023: On arrival patient oxygen sat was 88% on room air he was placed on oxygen at 4 L nasal cannula He was given a DuoNeb, Lasix, Decadron 10 mg IV push while in the ED Will continue with DuoNeb and IV Lasix continue diuresis Chest x-ray showed airspace opacities at left lung base, consistent with atelectasis versus pneumonia, small left pleural effusion We will get a CT of the chest abdomen pelvis today ProBNP was 3370 CPAP ordered for night use Continue to wean O2 to keep sat greater than 92% Echocardiogram ordered Start guaifenesin and Tessalon Perles Continue Lasix for diuresis PT and OT ordered 09/25/23: CT of the chest abdomen and pelvis showed anasarca including small left pleural effusion, small pericardial effusion small volume ascites, 4.6 cm fusiform aneurysm infrarenal aorta, umbilical hernia containing, bilateral inguinal hernia containing fat. Echo showing moderately reduced LV systolic function with an ejection fraction 35-40%, left ventricular diastolic function is abnormal, moderate aortic valve sclerosis. Venous Doppler negative for DVT DuoNebs ordered q.6 p.r.n. for wheezing, shortness of breath (2) CHF (congestive heart failure): Qualifiers: Heart failure chronicity: chronic Heart failure type: diastolic Qualified Code(s): I50.32 - Chronic diastolic (congestive) heart failure Code(s): I50.9 - Heart failure, unspecified Status: Chronic Assessment and Plan: 09/24/2023: BNP was 3370 Reporting shortness of breath with rest and bilateral lower extremity edema Patient has been noncompliant with his care and has not taking any medication in the last 6 months and has not seen a physician in the last year Cardiology is consulted Echo results are pending Continuous cardiac monitoring Will get venous Dopplers today 09/25/23: Cardiology following Cardiology put in for losartan 25 mg daily, metoprolol 25 mg daily, spironolactone 25 mg daily We will continue diuresis with Lasix 40 mg IV b.i.d. (3) Elevated troponin: Code(s): R79.89 - Other specified abnormal findings of blood chemistry Status: Acute Assessment and Plan: 09/24/2023: Troponin 0.014> 0.035> 0.031 Likely demand ischemia due to acute respiratory failure with hypoxia Cardiology will be following 09/25/23: No change (4) COPD (chronic obstructive pulmonary disease): Qualifiers: COPD type: unspecified COPD Qualified Code(s): J44.9 - Chronic obstructive pulmonary disease, unspecified Code(s): J44.9 - Chronic obstructive pulmonary disease, unspecified Status: Chronic Assessment and Plan: 09/24/2023: Patient denies wearing any oxygen are requiring any oxygen at home He is supposed to wear CPAP at night however has been noncompliant because his machine is broken and he does not have a primary care physician 09/25/23: Continue CPAP at night (5) Abdominal pain: Code(s): R10.9 - Unspecified abdominal pain Status: Acute Assessment and Plan: 09/24/2023: Reporting lower abdominal pain He does have umbilical hernia present, there is notable swelling and redness to his bilateral lower quadrants and pannus We will go ahead and get a CT of the chest abdomen pelvis today with contrast 09/25/23: CT of the chest abdomen and pelvis showing anasarca including small left pleural effusion, small pericardial effusion, small volume of ascites 4 minutes, 4.6 cm fusiform aneurysm of infrarenal aorta, umbilical hernia containing fat, bilateral inguinal hernia containing (6) Diabetes type 2, uncontrolled: Qualifiers: Glycemic state: with hyperglycemia Qualified Code(s): E11.65 - Type 2 diabetes mellitus with hyperglycemia Code(s): E11
[2023-09-25 12:05] LABS: Glucose Point of Care 200 mg/dl (65-105)
[2023-09-25 17:04] LABS: Glucose Point of Care 225 mg/dl (65-105)
[2023-09-25] MEDS: INSULIN GLARGINE (*BKC) 100 UNITS/ML 16 UNITS SUB-Q (20:18)
[2023-09-25] MEDS: guaiFENesin/DEXTROMETHORPHAN 10 ML UDC PO (20:19)
[2023-09-25 21:44] LABS: Glucose Point of Care 198 mg/dl (65-105)
[2023-09-26] VITALS (14 sets, daily range): BP systolic 112–147; BP diastolic 60–95; PULSE 67–101; RESP 20–22; TEMP 36.4–36.8; O2SAT 94–100
--- NOTE | 2023-09-26 | EST_ITS ---
Patient Info Name: Kvng Hoover Age: 63 years : 1960 Gender: Male Ht: 72 in Wt: 307 lbs BSA: 2.72 m2 HR: 91 bpm BP: 130 / 85 mmHg Heart Rhythm: Sinus Rhythm Exam Date: 09/27/2023 9:26 AM Exam Location: Echo Lab Patient Status: Inpatient Admit Date: 09/24/2023 Staff Ordering Physician: Kiran Johnson DO Attending Provider: Stella Westfall MD Exercise Technologist: Loida Hager CT Exercise Physician: Kiran Johnson DO Exam Type: CA stress gabby w NM Study Info Indications R06.02 - Shortness of breath A regadenoson stress test was performed. Summary 1. 1. Negative lexiscan stress test for ischemic ST changes by ECG criteria. 2. 2. Stable hemodynamics throughout the test. 3. 3. Nuclear scan to follow and will be reported separately. Please correlate with it. 4. 4. Patient informed of the above results. Protocol: Lexiscan Stress ECG Details Stage: REST Duration (min): 0 min : 52 sec HR (bpm): 89 SBP (mmHg): 130 DBP (mmHg): 85 Stage: REST Duration (min): 27 min : 29 sec HR (bpm): 91 SBP (mmHg): 130 DBP (mmHg): 85 Stage: STAGE 1 Duration (min): 0 min : 59 sec HR (bpm): 96 SBP (mmHg): 99 DBP (mmHg): 55 Stage: RECOVERY Duration (min): 1 min : 0 sec HR (bpm): 94 SBP (mmHg): 109 DBP (mmHg): 65 Stage: RECOVERY Duration (min): 2 min : 0 sec HR (bpm): 95 SBP (mmHg): 109 DBP (mmHg): 65 Stage: RECOVERY Duration (min): 2 min : 40 sec HR (bpm): 92 SBP (mmHg): 109 DBP (mmHg): 66 Rest HR: 91 bpm Peak HR: 95 bpm Rest Sys BP: 130 mmHg Peak Sys BP: 109 mmHg Max Pred HR: 157 bpm % Max Pred HR: 61 % Target HR: 133 bpm Max RPP: 10,355 bpm*mmHg Termination Reason: Completed protocol Cardiac Symptoms: Shortness of breath Total Time: 1 min : 0 sec Rest Carlos BP: 85 mmHg Peak Carlos BP: 66 mmHg Total Dose: 0.4 mg Resting ECG Sinus rhythm, anteroseptal infarct, age indeterminate. Stress ECG No ST changes. Arrhythmias None. Report Signatures
[2023-09-26 05:51] LABS: Basophils Absolute Auto 0.1 K/mm3 (0.0-0.1); Basophils Percent Auto 0.7 % (0.2-1.2); Eosinophils Absolute Auto 0.1 K/mm3 (0-0.3); Eosinophils Percent Auto 1.2 % (0-4.4); Hematocrit 49.7 % (42.0-52.0); Hemoglobin 15.5 g/dL (14.0-18.0); Immature Granulocyte Absolute 0.05 K/mm3 (0.00-0.031); Immature Granulocyte Percent A 0.4 % (0-0.5); Lymphocytes Absolute Auto 3.33 K/mm3 (0.9-3.2); Lymphocytes Percent Auto 27.4 % (18.3-44.2); Mean Corpuscular HGB Conc 31.2 g/dl (32-36); Mean Corpuscular Hemoglobin 28.2 pg (26-34); Mean Corpuscular Volume 90.5 fl (80-100); Mean Platelet Volume 11.8 fl (7.4-10.4); Monocytes Percent Auto 8.5 % (2.6-8.5); Neutrophils Absolute Auto 7.5 K/mm3 (1.3-6.7); Neutrophils Percent Auto 61.8 % (45.5-73.1); Platelet Count Result 154 k/mm3 (150-375); Red Blood Count 5.49 M/mm3 (4.6-6.20); Red Cell Distribution Width 14.3 % (11.5-14.5); White Blood Count 12.2 K/mm3 (4.5-10.0)
[2023-09-26 06:20] LABS: Alanine Aminotransferase 19 U/L (6-50); Albumin Level 3.5 g/dL (3.5-5.1); Alkaline Phosphatase 132 U/L (38-126); Anion Gap 6 mmol/L (4-12); Aspartate Amino Transferase 31 U/L (17-59); Bilirubin,Total 0.8 mg/dL (0.2-1.3); Blood Urea Nitrogen 24 mg/dL (9-20); Calcium 8.9 mg/dL (8.4-10.2); Carbon Dioxide 30 mmol/L (22-30); Chloride 100 mmol/L (98-107); Estimated CRCL calculation 119 ml/min; Estimated Glomerular Filt Rate > 60; Glucose 130 mg/dL (65-110); Potassium 3.3 mmol/L (3.4-5.0); Sodium 136 mmol/L (137-145)
[2023-09-26 07:29] LABS: Glucose Point of Care 110 mg/dl (65-105)
--- NOTE | 2023-09-26 08:35 | PM.PNCARD ---
Progress Note: A&P Assessment and Plan (1) SOB (shortness of breath) on exertion: Code(s): R06.02 - Shortness of breath Status: Acute Assessment and Plan: Due to both COPD and heart failure. Obtain lexiscan myoview stress test in AM. (2) Tobacco use: Code(s): Z72.0 - Tobacco use Status: Acute Assessment and Plan: Counseled regarding smoking cessation. (3) Elevated troponin: Code(s): R79.89 - Other specified abnormal findings of blood chemistry Status: Acute Assessment and Plan: Peaked at .035. Unlikely ACS, and probably CHF related. (4) HTN (hypertension): Qualifiers: Hypertension type: essential hypertension Qualified Code(s): I10 - Essential (primary) hypertension Code(s): I10 - Essential (primary) hypertension Status: Chronic Assessment and Plan: Stable. (5) CAD (coronary artery disease): Qualifiers: Coronary Disease-Associated Artery/Lesion type: unspecified vessel or lesion type [place] vs. transplanted heart: [place] heart Associated angina: angina presence unspecified Qualified Code(s): I25.10 - Atherosclerotic heart disease of [place] coronary artery without angina pectoris Code(s): I25.10 - Atherosclerotic heart disease of [place] coronary artery without angina pectoris Status: Chronic Assessment and Plan: States he had cath at [place] several years ago which I can't find report, but had 80% small vessel stenosis that can't be stented per patient. (6) Combined systolic and diastolic congestive heart failure: Code(s): I50.40 - Unspecified combined systolic (congestive) and diastolic (congestive) heart failure Status: Acute Assessment and Plan: Acute on chronic. 09/24/23 Echo: EF 35-40%, mod LVE, mild LVH, diastolic dysfunction (E/e' 17), mod biatrial enlargement, mild MR/TR, trace PI, small pericardial effusion. Continue with diuresis with Lasix 40 mg IV BID. On Losartan 25 mg daily, Metoprolol Succinate 25 mg daily, Spironolactone 25 mg daily. Start Jardiance 10 mg daily. (7) Abdominal aortic aneurysm: Code(s): I71.40 - Abdominal aortic aneurysm, without rupture, unspecified Status: Acute Assessment and Plan: Stable. Subjective Date/time seen: 09/26/23 08:35 Interval history: Reports no chest pains. Has chronic sob and coughing, but improving. Exam Const: General: healthy appearing, comfortable and other (somnolent) Orientation/consciousness: oriented to person, oriented to place and oriented to time Resp: Auscultation: no crackles, no rales, no rhonchi, no wheezes and diminished lung sounds Cardio: Rate: regular rate Rhythm: regular rhythm Heart sounds: no murmurs Peripheral pulses: dorsalis pedis present Neuro: General: oriented to person, oriented to place and oriented to time Extrem: Right lower extremity: edema Left lower extremity: edema Other: Mild edema of both legs Objective Data Vital Signs Vital Signs: Vital Signs - 24 hr 09/25/23 09:14 09/25/23 12:00 09/25/23 13:00 Temperature 97.6 F Pulse Rate 92 95 78 Respiratory Rate 14 Blood Pressure 122/72 Pulse Oximetry 96 Oxygen Delivery Oxygen Flow Rate 09/25/23 16:00 09/25/23 16:00 09/25/23 20:00 Temperature 97.6 F Pulse Rate 99 78 95 Respiratory Rate 14 Blood Pressure 110/68 Pulse Oximetry 96 Oxygen Delivery Oxygen Flow Rate 09/25/23 20:00 09/25/23 20:00 09/26/23 00:00 Temperature 97.8 F 98.2 F Pulse Rate 89 72 Respiratory Rate 22 H 20 Blood Pressure 150/97 H 147/95 H Pulse Oximetry 95 96 95 Oxygen Delivery Nasal Cannula Oxygen Flow Rate 4 09/25/23 20:25 09/26/23 01:30 09/26/23 00:00 Temperature Pulse Rate 90 100 Respiratory Rate Blood Pressure Pulse Oximetry 98 96 Oxygen Delivery CPAP CPAP Oxygen Flow Rate 09/26/23 04:00 09/26/23 04:00 Temperature 97.7 F Pulse Rate 83 67 Respira
[2023-09-26] MEDS: SPIRONOLACTONE 25 MG TABLET PO (08:39)
[2023-09-26] MEDS: EMPAGLIFLOZIN 10 MG TABLET PO (08:39)
[2023-09-26] MEDS: LOSARTAN POTASSIUM 25 MG TABLET PO (08:40)
[2023-09-26] MEDS: BENZONATATE 100 MG CAPSULE 200 MG PO ×3 (08:40→16:43)
[2023-09-26] MEDS: METOPROLOL SUCCINATE EXT REL 25 MG TABCR PO (08:40)
[2023-09-26] MEDS: FUROSEMIDE INJ 40 MG/4 ML VIAL IV PUSH ×2 (08:41→16:44)
[2023-09-26] MEDS: BETAMETHASONE/CLOTRIMAZOLE CR 15 GM TUBE 1 APPLIC TOPICAL ×2 (08:41→21:12)
[2023-09-26] MEDS: LIDOCAINE 5% PATCH 1 PATCH TRANSDERM (08:41)
[2023-09-26] MEDS: ENOXAPARIN 40 MG/0.4 ML SYRINGE SUB-Q (08:41)
[2023-09-26] MEDS: ACETAMINOPHEN 325 MG TABLET 650 MG PO ×2 (08:42→13:02)
[2023-09-26 11:32] LABS: Glucose Point of Care 218 mg/dl (65-105)
--- NOTE | 2023-09-26 11:40 | PC.NURSE ---
attempted to call Dr. Johnson @2011 09/26/23 for order clarifications regarding Lexiscan stress test ordered and patient NPO diet to start tonight at midnight or today at this time. Left message with provider.
--- NOTE | 2023-09-26 12:13 | P.PNIM_ITS ---
Progress Note: A&P Assessment and Plan (1) Acute respiratory failure with hypoxia: Code(s): J96.01 - Acute respiratory failure with hypoxia Status: Acute Assessment and Plan: 09/24/2023: * On arrival patient oxygen sat was 88% on room air he was placed on oxygen at 4 L nasal cannula * He was given a DuoNeb, Lasix, Decadron 10 mg IV push while in the ED * Will continue with DuoNeb and IV Lasix continue diuresis * Chest x-ray showed airspace opacities at left lung base, consistent with atelectasis versus pneumonia, small left pleural effusion * We will get a CT of the chest abdomen pelvis today * ProBNP was 3370 * CPAP ordered for night use * Continue to wean O2 to keep sat greater than 92% * Echocardiogram ordered * Start guaifenesin and Tessalon Perles * Continue Lasix for diuresis * PT and OT ordered 09/25/23: * CT of the chest abdomen and pelvis showed anasarca including small left pleural effusion, small pericardial effusion small volume ascites, 4.6 cm fusiform aneurysm infrarenal aorta, umbilical hernia containing, bilateral inguinal hernia containing fat. * Echo showing moderately reduced LV systolic function with an ejection fraction 35-40%, left ventricular diastolic function is abnormal, moderate aortic valve sclerosis. * Venous Doppler negative for DVT * DuoNebs ordered q.6 p.r.n. for wheezing, shortness of breath September 25 update: Continue to appreciate Cardiology recommendations. Continue diuresis and continue to attempt to wean oxygen. (2) CHF (congestive heart failure): Qualifiers: Heart failure type: diastolic Heart failure chronicity: chronic Qualified Code(s): I50.32 - Chronic diastolic (congestive) heart failure Code(s): I50.9 - Heart failure, unspecified Status: Chronic Assessment and Plan: 09/24/2023: * BNP was 3370 * Reporting shortness of breath with rest and bilateral lower extremity edema * Patient has been noncompliant with his care and has not taking any medication in the last 6 months and has not seen a physician in the last year * Cardiology is consulted * Echo results are pending * Continuous cardiac monitoring * Will get venous Dopplers today 09/25/23: * Cardiology following * Cardiology put in for losartan 25 mg daily, metoprolol 25 mg daily, spironolactone 25 mg daily * We will continue diuresis with Lasix 40 mg IV b.i.d. September 25 update: Continue to appreciate Cardiology recommendations. Acute hypokalemia likely due to diuretic use. Placed today and recheck tomorrow along with magnesium. (3) Elevated troponin: Code(s): R79.89 - Other specified abnormal findings of blood chemistry Status: Acute Assessment and Plan: 09/24/2023: * Troponin 0.014> 0.035> 0.031 * Likely demand ischemia due to acute respiratory failure with hypoxia * Cardiology will be following 09/25/23: * No change September 25 update: Per Cardiology recommendations patient will go for a Lexiscan stress test tomorrow. NPO at midnight (4) COPD (chronic obstructive pulmonary disease): Qualifiers: COPD type: unspecified COPD Qualified Code(s): J44.9 - Chronic obstructive pulmonary disease, unspecified Code(s): J44.9 - Chronic obstructive pulmonary disease, unspecified Status: Chronic Assessment and Plan: 09/24/2023: * Patient denies wearing any oxygen are requiring any oxygen at home * He is supposed to wear CPAP at night however has been noncompliant because his machine is broken and he does not have a primary care physician 09/25/23: * Continue CPAP at night.
--- NOTE | 2023-09-26 12:13 | PM.IMPN ---
Progress Note: A&P Assessment and Plan (1) Acute respiratory failure with hypoxia: Code(s): J96.01 - Acute respiratory failure with hypoxia Status: Acute Assessment and Plan: 09/24/2023: On arrival patient oxygen sat was 88% on room air he was placed on oxygen at 4 L nasal cannula He was given a DuoNeb, Lasix, Decadron 10 mg IV push while in the ED Will continue with DuoNeb and IV Lasix continue diuresis Chest x-ray showed airspace opacities at left lung base, consistent with atelectasis versus pneumonia, small left pleural effusion We will get a CT of the chest abdomen pelvis today ProBNP was 3370 CPAP ordered for night use Continue to wean O2 to keep sat greater than 92% Echocardiogram ordered Start guaifenesin and Tessalon Perles Continue Lasix for diuresis PT and OT ordered 09/25/23: CT of the chest abdomen and pelvis showed anasarca including small left pleural effusion, small pericardial effusion small volume ascites, 4.6 cm fusiform aneurysm infrarenal aorta, umbilical hernia containing, bilateral inguinal hernia containing fat. Echo showing moderately reduced LV systolic function with an ejection fraction 35-40%, left ventricular diastolic function is abnormal, moderate aortic valve sclerosis. Venous Doppler negative for DVT DuoNebs ordered q.6 p.r.n. for wheezing, shortness of breath September 25 update: Continue to appreciate Cardiology recommendations. Continue diuresis and continue to attempt to wean oxygen. (2) CHF (congestive heart failure): Qualifiers: Heart failure type: diastolic Heart failure chronicity: chronic Qualified Code(s): I50.32 - Chronic diastolic (congestive) heart failure Code(s): I50.9 - Heart failure, unspecified Status: Chronic Assessment and Plan: 09/24/2023: BNP was 3370 Reporting shortness of breath with rest and bilateral lower extremity edema Patient has been noncompliant with his care and has not taking any medication in the last 6 months and has not seen a physician in the last year Cardiology is consulted Echo results are pending Continuous cardiac monitoring Will get venous Dopplers today 09/25/23: Cardiology following Cardiology put in for losartan 25 mg daily, metoprolol 25 mg daily, spironolactone 25 mg daily We will continue diuresis with Lasix 40 mg IV b.i.d. September 25 update: Continue to appreciate Cardiology recommendations. Acute hypokalemia likely due to diuretic use. Placed today and recheck tomorrow along with magnesium. (3) Elevated troponin: Code(s): R79.89 - Other specified abnormal findings of blood chemistry Status: Acute Assessment and Plan: 09/24/2023: Troponin 0.014> 0.035> 0.031 Likely demand ischemia due to acute respiratory failure with hypoxia Cardiology will be following 09/25/23: No change September 25 update: Per Cardiology recommendations patient will go for a Lexiscan stress test tomorrow. NPO at midnight (4) COPD (chronic obstructive pulmonary disease): Qualifiers: COPD type: unspecified COPD Qualified Code(s): J44.9 - Chronic obstructive pulmonary disease, unspecified Code(s): J44.9 - Chronic obstructive pulmonary disease, unspecified Status: Chronic Assessment and Plan: 09/24/2023: Patient denies wearing any oxygen are requiring any oxygen at home He is supposed to wear CPAP at night however has been noncompliant because his machine is broken and he does not have a primary care physician 09/25/23: Continue CPAP at night. September 25 update: Encouraged compliance. VBG in the morning (5) Abdominal pain: Code(s): R10.9 - Unspecified abdominal pain Status: Acute Assessment and Plan: 09/24/2023: Reporting lower abdominal pain He does have umbilical hernia present, there is notable swelling and redness to his bilateral lower quadrants and pannus We will go ahead and get a CT of the chest abdomen pelvi
[2023-09-26] MEDS: INSULIN ASPART (*BKC) 100 UNITS/ML SUB-Q ×2 (13:03→21:10)
[2023-09-26] MEDS: POTASSIUM CHLORIDE 20 MEQ ER TABLET PO (13:03)
[2023-09-26 16:12] LABS: Glucose Point of Care 162 mg/dl (65-105)
[2023-09-26] MEDS: guaiFENesin/DEXTROMETHORPHAN 10 ML UDC PO (21:07)
[2023-09-26] MEDS: INSULIN GLARGINE (*BKC) 100 UNITS/ML 16 UNITS SUB-Q (21:09)
[2023-09-26 21:12] LABS: Glucose Point of Care 236 mg/dl (65-105)
[2023-09-27] VITALS: BP 135/72; PULSE 101; PULSE 72; RESP 20; TEMP 36.8; O2SAT 100
[2023-09-27 04:00] VITALS: BP 132/76; PULSE 71; PULSE 95; RESP 20; TEMP 36.5; O2SAT 100
[2023-09-27 05:46] LABS: Fractional Inspired Oxygen 21 %; HCO3 VBG 29.7 mEq/l (24.0-30.0); PO2 VBG 51.2 mmHg (35.0-45.0)
[2023-09-27 05:49] LABS: pH VBG 7.438 (7.300-7.400)
[2023-09-27 05:55] LABS: Basophils Absolute Auto 0.1 K/mm3 (0.0-0.1); Basophils Percent Auto 0.7 % (0.2-1.2); Eosinophils Absolute Auto 0.1 K/mm3 (0-0.3); Eosinophils Percent Auto 0.9 % (0-4.4); Hematocrit 50.1 % (42.0-52.0); Hemoglobin 15.7 g/dL (14.0-18.0); Immature Granulocyte Absolute 0.05 K/mm3 (0.00-0.031); Immature Granulocyte Percent A 0.4 % (0-0.5); Lymphocytes Absolute Auto 2.52 K/mm3 (0.9-3.2); Mean Corpuscular HGB Conc 31.3 g/dl (32-36); Mean Corpuscular Hemoglobin 28.2 pg (26-34); Mean Corpuscular Volume 90.1 fl (80-100); Mean Platelet Volume 11.6 fl (7.4-10.4); Monocytes Percent Auto 8.7 % (2.6-8.5); Neutrophils Absolute Auto 7.7 K/mm3 (1.3-6.7); Neutrophils Percent Auto 67.3 % (45.5-73.1); Platelet Count Result 161 k/mm3 (150-375); Red Blood Count 5.56 M/mm3 (4.6-6.20); Red Cell Distribution Width 14.1 % (11.5-14.5); White Blood Count 11.4 K/mm3 (4.5-10.0)
[2023-09-27 06:07] LABS: Alanine Aminotransferase 20 U/L (6-50); Albumin Level 3.5 g/dL (3.5-5.1); Alkaline Phosphatase 130 U/L (38-126); Anion Gap 6 mmol/L (4-12); Aspartate Amino Transferase 29 U/L (17-59); Bilirubin,Total 0.7 mg/dL (0.2-1.3); Blood Urea Nitrogen 19 mg/dL (9-20); Calcium 8.6 mg/dL (8.4-10.2); Carbon Dioxide 32 mmol/L (22-30); Chloride 97 mmol/L (98-107); Estimated CRCL calculation 135 ml/min; Estimated Glomerular Filt Rate > 60; Glucose 169 mg/dL (65-110); Magnesium 2.1 mg/dL (1.6-2.3); Potassium 3.3 mmol/L (3.4-5.0); Sodium 135 mmol/L (137-145)
[2023-09-27 07:33] LABS: Glucose Point of Care 167 mg/dl (65-105)
--- NOTE | 2023-09-27 07:41 | PM.PNCARD ---
Progress Note: A&P Assessment and Plan (1) SOB (shortness of breath) on exertion: Code(s): R06.02 - Shortness of breath Status: Acute Assessment and Plan: Due to both COPD and heart failure. Obtain lexiscan myoview stress test today. (2) Tobacco use: Code(s): Z72.0 - Tobacco use Status: Acute Assessment and Plan: Counseled regarding smoking cessation. (3) Elevated troponin: Code(s): R79.89 - Other specified abnormal findings of blood chemistry Status: Acute Assessment and Plan: Peaked at .035. Unlikely ACS, and probably CHF related. (4) HTN (hypertension): Qualifiers: Hypertension type: essential hypertension Qualified Code(s): I10 - Essential (primary) hypertension Code(s): I10 - Essential (primary) hypertension Status: Chronic Assessment and Plan: Stable. (5) CAD (coronary artery disease): Qualifiers: Coronary Disease-Associated Artery/Lesion type: unspecified vessel or lesion type [place] vs. transplanted heart: [place] heart Associated angina: angina presence unspecified Qualified Code(s): I25.10 - Atherosclerotic heart disease of [place] coronary artery without angina pectoris Code(s): I25.10 - Atherosclerotic heart disease of [place] coronary artery without angina pectoris Status: Chronic Assessment and Plan: States he had cath at [place] several years ago which I can't find report, but had 80% small vessel stenosis that can't be stented per patient. (6) Combined systolic and diastolic congestive heart failure: Code(s): I50.40 - Unspecified combined systolic (congestive) and diastolic (congestive) heart failure Status: Acute Assessment and Plan: Acute on chronic. 09/24/23 Echo: EF 35-40%, mod LVE, mild LVH, diastolic dysfunction (E/e' 17), mod biatrial enlargement, mild MR/TR, trace PI, small pericardial effusion. Continue with diuresis with Lasix 40 mg IV BID. On Losartan 25 mg daily, Metoprolol Succinate 25 mg daily, Spironolactone 25 mg daily, and Jardiance 10 mg daily. Change Lasix 40 mg PO BID. (7) Abdominal aortic aneurysm: Code(s): I71.40 - Abdominal aortic aneurysm, without rupture, unspecified Status: Acute Assessment and Plan: Stable. Subjective Date/time seen: 09/27/23 07:41 Interval history: Reports no chest pains. Has chronic sob and coughing, but improving. Exam Const: General: healthy appearing, comfortable and other (somnolent) Orientation/consciousness: oriented to person, oriented to place and oriented to time Resp: Auscultation: no crackles, no rales, no rhonchi, no wheezes and diminished lung sounds Cardio: Rate: regular rate Rhythm: regular rhythm Heart sounds: no murmurs Peripheral pulses: dorsalis pedis present Neuro: General: oriented to person, oriented to place and oriented to time Extrem: Right lower extremity: edema Left lower extremity: edema Other: Mild edema of both legs Objective Data Vital Signs Vital Signs: Vital Signs - 24 hr 09/26/23 08:40 09/26/23 08:00 09/26/23 11:52 Temperature 97.8 F 97.5 F L Pulse Rate 89 87 87 Respiratory Rate 20 20 Blood Pressure 117/87 112/60 Pulse Oximetry 98 95 Oxygen Delivery Oxygen Flow Rate 09/26/23 16:01 09/26/23 16:00 09/26/23 08:00 Temperature 97.8 F Pulse Rate 83 84 Respiratory Rate 20 Blood Pressure 128/89 Pulse Oximetry 94 100 Oxygen Delivery Nasal Cannula Oxygen Flow Rate 3 09/26/23 11:15 09/26/23 16:03 09/26/23 08:40 Temperature Pulse Rate 91 92 92 Respiratory Rate 20 Blood Pressure Pulse Oximetry 94 Oxygen Delivery Nasal Cannula Oxygen Flow Rate 4 09/26/23 20:00 09/26/23 22:31 09/26/23 21:10 Temperature 97.8 F Pulse Rate 89 Respiratory Rate 22 H Blood Pressure 120/75 Pulse Oximetry 100 96 95 Oxygen Delivery CPAP Nasal Cannula Oxygen Flow Rate 4 09/27/23 00:00 09/27/23 0
[2023-09-27 08:00] VITALS: BP 133/87; PULSE 97; RESP 20; TEMP 36.6; O2SAT 100
[2023-09-27] MEDS: FUROSEMIDE 40 MG TABLET PO (10:51)
[2023-09-27] MEDS: BENZONATATE 100 MG CAPSULE 200 MG PO ×2 (10:51→13:05)
[2023-09-27] MEDS: EMPAGLIFLOZIN 10 MG TABLET PO (10:51)
[2023-09-27] MEDS: LIDOCAINE 5% PATCH 1 PATCH TRANSDERM (10:51)
[2023-09-27 10:52] VITALS: PULSE 97
[2023-09-27] MEDS: METOPROLOL SUCCINATE EXT REL 25 MG TABCR PO (10:52)
[2023-09-27] MEDS: ENOXAPARIN 40 MG/0.4 ML SYRINGE SUB-Q (10:52)
[2023-09-27] MEDS: SPIRONOLACTONE 25 MG TABLET PO (10:52)
[2023-09-27] MEDS: BETAMETHASONE/CLOTRIMAZOLE CR 15 GM TUBE 1 APPLIC TOPICAL (10:52)
[2023-09-27] MEDS: LOSARTAN POTASSIUM 25 MG TABLET PO (10:52)
[2023-09-27 11:27] LABS: Glucose Point of Care 152 mg/dl (65-105)
[2023-09-27 12:00] VITALS: BP 147/98; PULSE 98; RESP 20; TEMP 36.6; O2SAT 100
--- NOTE | 2023-09-27 13:18 | PM.DS ---
DS: Admitting Diagnosis Discharge Date September 27, 2023 Admitting Diagnosis Shortness of breath DS: Discharge Diagnosis Discharge Diagnosis (1) SOB (shortness of breath) on exertion: Code(s): R06.02 - Shortness of breath Status: Acute (2) Combined systolic and diastolic congestive heart failure: Code(s): I50.40 - Unspecified combined systolic (congestive) and diastolic (congestive) heart failure Status: Acute (3) Acute respiratory failure with hypoxia: Code(s): J96.01 - Acute respiratory failure with hypoxia Status: Acute DS: Summary Hospital Course Hospital Course: 63-year-old male with past medical history anxiety asthma CAD, combined systolic-diastolic heart failure, COPD, and phentermine abuse, depression, uncontrolled type 2 diabetes mellitus, GERD, hyperlipidemia, hypertension, sleep apnea noncompliant with CPAP, peripheral neuropathy, TIA, tobacco abuse and was shortness of breath. Patient does not have PCP and has not been taking his medications. He was treated for acute respiratory failure with hypoxia due to acutely decompensated heart failure with diuretics and other guideline directed medical therapy without help of Cardiology consultation. On 09/27/2023 the patient is stable to return home. He is breathing well on room air. He will be discharged on Lasix, Toprol, losartan, spironolactone, Jardiance. He has been set up with Dr. Key for a new PCP establishment. Patient has been counseled on the use of amphetamine and the importance of adhering to medical recommendations to which he agrees. Adverse effects risk and benefits discussed with the patient to which he understands. He is also to follow with Cardiology to which he understands. Surface echocardiogram conducted on 09/24/2023 which demonstrated mild concentric increased left ventricular wall thickness with EF 35-40% and a left ventricular diastolic dysfunction, mild MV regurg, mild TV regurg, with a estimated PA SP of 30 mmHg. Venous Dopplers negative for DVT. Troponin was elevated, peaked at 0.035 which is likely due to demand ischemia due to acute hypoxic respiratory failure. Was also treated for acute COPD exacerbation with neb treatments. Patient was supplied CPAP at night which he tolerated. He knows as well he needs a new sleep study obtain a new CPAP machine at home. VBG did not demonstrate hypercarbia. Patient's HbA1c 13.4 unchanged from previous year. Diabetic counseling provided and a diabetic Education referral has been prescribed. Patient's sugars are better controlled on Lantus 12 units q.h.s.. Has been prescribed glucometer, test strips and Lantus Solostar for discharge. Again as advised above he needs to follow-up closely with his PCP. The patient was full code during his admission. Time Spent with Patient Time attestation: Total time spent providing and/or coordinating discharge services: Exam Const: General: comfortable and no acute distress Other: Obese Eyes: Pupils: Equal, round and reactive pupils present Neck: Neck: supple Resp: Effort & Inspection: normal respiratory effort Auscultation: crackles (Scant diffuse) Cardio: Rate: regular rate Rhythm: regular rhythm Heart sounds: no gallops, no murmurs and no rubs GI: GI Palp: Yes Soft to palpation and No Tenderness to palpation present (GI) Extrem: General: edema (1+ of bilateral lower extremities) DS: Data Data Completed and Pending Labs on day of discharge: Labs from last 24 hours 09/27/23 09/27/23 09/27/23 11:23 07:29 05:39 WBC RBC Hgb Hct MCV MCH MCHC RDW Plt Count MPV Immature Gran % (Auto) Neut % (Auto) Lymph % (Auto) Brooke % (Auto) Eos % (Auto) Baso % (Auto) Lymph # (Auto) Brooke # (Auto) Eos # (Auto) Baso # (Auto) Abs Immat Gran (auto) Absolute Neuts (auto) Absolute Nucleated RBC Nucleated RBC % VBG pH 7.438 H* VBG pCO2 45
== END 2023-09-27 15:20 | disposition home or self-care (01) | DRG 291 ==
LOC: ANHED 03:03 → ANH3MEDSUR 12:07
PROVIDERS: Nurse Practitioner Acute Care; Admitting Provider Internal Medicine; Emergency Provider Emergency Medicine; Visit Provider General Practice
DX: I11.0 Hypertensive heart disease with heart failure (principal); I50.43 Acute on chronic combined systolic (congestive) and diastolic (congestive) heart failure; J96.01 Acute respiratory failure with hypoxia; I24.89 Other forms of acute ischemic heart disease; I25.10 Atherosclerotic heart disease of native coronary artery without angina pectoris; I71.40 Abdominal aortic aneurysm, without rupture, unspecified; J44.89 Other specified chronic obstructive pulmonary disease; E11.42 Type 2 diabetes mellitus with diabetic polyneuropathy; E87.6 Hypokalemia; E11.65 Type 2 diabetes mellitus with hyperglycemia; E78.5 Hyperlipidemia, unspecified; K21.9 Gastro-esophageal reflux disease without esophagitis; K42.9 Umbilical hernia without obstruction or gangrene; R60.1 Generalized edema; M54.9 Dorsalgia, unspecified; M19.90 Unspecified osteoarthritis, unspecified site; G89.29 Other chronic pain; G47.33 Obstructive sleep apnea (adult) (pediatric); F41.9 Anxiety disorder, unspecified; F32.A Depression, unspecified; F15.10 Other stimulant abuse, uncomplicated; F17.210 Nicotine dependence, cigarettes, uncomplicated; Z20.822 Contact with and (suspected) exposure to COVID-19; I25.2 Old myocardial infarction; Z91.199 Patient's noncompliance with other medical treatment and regimen due to unspecified reason; Z96.631 Presence of right artificial wrist joint; Z96.653 Presence of artificial knee joint, bilateral; Z87.11 Personal history of peptic ulcer disease; Z86.73 Personal history of transient ischemic attack (TIA), and cerebral infarction without residual deficits
CPT/HCPCS: 36415; 71045; 71260; 74177; 78452; 80053; 80061; 80307; 82803; 82948; 83036; 83735; 83880; 84443; 84484; 85025; 85055; 85730; 86140; 87637; 93005; 93017; 93306; 93970; 96374; 96375; 97110; 97116; 97161; 97165; 99285; A9270; A9502; J1100; J1650; J1815; J1940; J2785; Q9967